=== PATIENT | male | born 1950 | race Caucasian/White ===

== ENCOUNTER 2022-08-18 08:20 | Day surgery (SDC) | payer OTHER ==
[~2022-08-18] VITALS: Ht 180.3 cm; Wt 101.2 kg
[2022-08-18 08:50] VITALS: BP 148/73
[2022-08-18] MEDS ORDERED: normal saline 1000ml 1,000 ML IV PRN (08:55)
[2022-08-18] MEDS ORDERED: MULT-1249 PO (09:13)
[2022-08-18] MEDS ORDERED: ACET-1025 PO (09:13)
[2022-08-18] MEDS ORDERED: ALLO100T PO (09:13)
[2022-08-18] MEDS ORDERED: FLO0.4C PO (09:13)
[2022-08-18] MEDS ORDERED: DOCU100C40 PO (09:13)
[2022-08-18] MEDS ORDERED: CARV-50 PO (09:13)
[2022-08-18] MEDS ORDERED: CARB1DRO42 EACHEYE (09:13)
[2022-08-18] MEDS ORDERED: CLON0.1T PO (09:13)
[2022-08-18] MEDS ORDERED: DOXY25TA58 PO (09:13)
[2022-08-18] MEDS ORDERED: CALC668T PO (09:13)
[2022-08-18] MEDS ORDERED: ATOR80TA PO (09:13)
[2022-08-18] MEDS ORDERED: ASPI81TA52 PO (09:13)
[2022-08-18] MEDS ORDERED: CINN500C15 PO (09:13)
[2022-08-18] MEDS ORDERED: FIBER PO (09:13)
[2022-08-18] MEDS ORDERED: CHOL100046 PO (09:13)
[2022-08-18] MEDS ORDERED: ATRNS (09:13)
[2022-08-18] MEDS ORDERED: iohexol 300mg/ml 100ml inj. ONE (09:20)
[2022-08-18] MEDS ORDERED: fentaNYL/PF 50MCG/1 ML 2ML syringe ONE ×2 (09:20→10:53)
[2022-08-18] MEDS ORDERED: midazolam 1 mg/ML 2ml injection ONE ×2 (09:20→10:58)
[2022-08-18] MEDS ORDERED: heparin 1,000 UNITS/NS 500ml 500 ML ONE (09:20)
[2022-08-18 10:00] LABS: BASOPHILS # (AUTO) 0.1 X10'3 (0-0.2); BASOPHILS % (AUTO) 0.8 % (0-1); EOSINOPHILS # (AUTO) 0.1 X10'3 (0-0.9); EOSINOPHILS % (AUTO) 1.7 % (0-6); HEMATOCRIT 35.8 % (42.0-52.0); HEMOGLOBIN 12.2 g/dl (14.0-17.9); LYMPHOCYTES # (AUTO) 2.3 X10'3 (1.1-4.8); LYMPHOCYTES % (AUTO) 25.9 % (21-51); MEAN CORPUSCULAR HEMOGLOBIN 31.2 PG (27.0-31.0); MEAN CORPUSCULAR HGB CONC 34.1 g/dL (33.0-36.5); MEAN CORPUSCULAR VOLUME 91.5 FL (78-98); MEAN PLATELET VOLUME 8.7 FL (7.4-10.4); MONOCYTES # (AUTO) 0.7 X10'3 (0-0.9); NEUTROPHILS # (AUTO) 5.6 X10'3 (1.8-7.7); NEUTROPHILS % (AUTO) 63.6 % (42-75); PLATELET COUNT 264 X10'3 (140-440); RED BLOOD COUNT 3.91 X10'6 (4.70-6.10); RED CELL DISTRIBUTION WIDTH 15.8 % (11.5-14.5); WHITE BLOOD COUNT 8.7 X10'3 (4.5-11.0)
[2022-08-18 10:03] LABS: ALBUMIN 4.3 G/DL (3.4-5.0); ANION GAP 9 (8-16); BLOOD UREA NITROGEN 36 MG/DL (7-18); BUN/CREATININE RATIO 10.3 (5.4-32.0); CALCIUM 10.1 MG/DL (8.5-10.1); CHLORIDE 98 MMOL/L (99-107); GLUCOSE 251 MG/DL (70-104); POTASSIUM 3.3 MMOL/L (3.5-5.1); SODIUM 138 MMOL/L (135-145); TOTAL CARBON DIOXIDE 31.4 MMOL/L (24-32); eGFR 17 ML/MIN
[2022-08-18 11:30] VITALS: BP 170/79
[2022-08-18 11:45] VITALS: BP 162/76
[2022-08-18 12:00] VITALS: BP 151/70
[2022-08-18 12:15] VITALS: BP 146/76
[2022-08-18 12:45] VITALS: BP 136/54
== END 2022-08-18 12:45 | disposition home or self-care (01) ==
LOC: SSTAY O 08:20
PROVIDERS: ATTEND Radiology Vascular & Interventional Radiology
DX: T82.858A Stenosis of other vascular prosthetic devices, implants and grafts, initial encounter (principal); E11.22 Type 2 diabetes mellitus with diabetic chronic kidney disease; N18.6 End stage renal disease; F32.A Depression, unspecified; N40.0 Benign prostatic hyperplasia without lower urinary tract symptoms; M10.9 Gout, unspecified; I50.9 Heart failure, unspecified; G47.33 Obstructive sleep apnea (adult) (pediatric); Z95.0 Presence of cardiac pacemaker; Z88.5 Allergy status to narcotic agent; Z79.899 Other long term (current) drug therapy; Y83.2 Surgical operation with anastomosis, bypass or graft as the cause of abnormal reaction of the patient, or of later complication, without mention of misadventure at the time of the procedure; Y92.89 Other specified places as the place of occurrence of the external cause
CPT/HCPCS: 36415; 36902; 80048; 82948; 85025; 85610; 99152; 99153; C1769; C1894; J1644; J2250; J3010; J7030; Q9967; C2623

== ENCOUNTER 2023-04-16 06:25 | Day surgery (SDC) | payer OTHER ==
[~2023-04-16] VITALS: Ht 180.3 cm; Wt 103.6 kg
[~2023-04-16 06:25] MED LIST: ACET-1025 PO; ALLO100T PO; ASPI81TA52 PO; ATOR80TA PO; ATRNS; CALC668T PO; CARB1DRO42 EACHEYE; CARV-50 PO; CHOL100046 PO; CINN500C15 PO; CLON0.1T PO; DOCU100C40 PO; DOXY25TA58 PO; FIBER PO; FLO0.4C PO; MULT-1249 PO
[2023-04-16 06:56] VITALS: BP 142/64; PULSE 60; RESP 16; TEMP 97.9; O2SAT 95
[2023-04-16] MEDS ORDERED: normal saline 1000ml 1,000 ML IV PRN (07:05)
[2023-04-16 07:15] LABS: BASOPHILS # (AUTO) 0.1 X10'3 (0-0.2); BASOPHILS % (AUTO) 0.8 % (0-1); EOSINOPHILS # (AUTO) 0.2 X10'3 (0-0.9); EOSINOPHILS % (AUTO) 2.3 % (0-6); HEMOGLOBIN 11.5 g/dl (14.0-17.9); LYMPHOCYTES # (AUTO) 1.8 X10'3 (1.1-4.8); LYMPHOCYTES % (AUTO) 20.4 % (21-51); MEAN CORPUSCULAR HEMOGLOBIN 29.5 PG (27.0-31.0); MEAN CORPUSCULAR HGB CONC 32.8 g/dL (33.0-36.5); MEAN CORPUSCULAR VOLUME 90.1 FL (78-98); MEAN PLATELET VOLUME 8.1 FL (7.4-10.4); MONOCYTES # (AUTO) 0.8 X10'3 (0-0.9); MONOCYTES % (AUTO) 8.8 % (2-12); NEUTROPHILS % (AUTO) 67.7 % (42-75); PLATELET COUNT 224 X10'3 (140-440); RED BLOOD COUNT 3.89 X10'6 (4.70-6.10); WHITE BLOOD COUNT 8.9 X10'3 (4.5-11.0)
[2023-04-16 07:24] LABS: ALBUMIN 4.1 G/DL (3.4-5.0); ANION GAP 11 (8-16); BLOOD UREA NITROGEN 57 MG/DL (7-18); BUN/CREATININE RATIO 13.5 (10.0-20.0); CALCIUM 9.5 MG/DL (8.5-10.1); CHLORIDE 102 MMOL/L (99-107); CREATININE 4.23 MG/DL (0.60-1.10); GLUCOSE 227 MG/DL (70-104); POTASSIUM 4.4 MMOL/L (3.5-5.1); SODIUM 138 MMOL/L (135-145); TOTAL CARBON DIOXIDE 25.3 MMOL/L (24-32); eCRCL 17 ML/MIN; eGFR 14 ML/MIN
[2023-04-16 07:27] LABS: PROTHROMBIN TIME 10.3 SECONDS (9.0-12.0)
[2023-04-16] MEDS ORDERED: POTA20PA40 PO (07:47)
[2023-04-16] MEDS ORDERED: FOLI0.8T41 PO (07:47)
[2023-04-16] MEDS ORDERED: HYDR-4069 PO (07:47)
[2023-04-16] MEDS ORDERED: FLO0.4C PO (07:47)
[2023-04-16] MEDS ORDERED: GABA-530 PO (07:47)
[2023-04-16] MEDS ORDERED: METH-798 PO (07:47)
[2023-04-16] MEDS ORDERED: ALOG12.5 PO (07:47)
[2023-04-16] MEDS ORDERED: fentaNYL/PF 50MCG/1 ML 2ML syringe ONE ×2 (07:55→08:47)
[2023-04-16] MEDS ORDERED: midazolam 1 mg/ML 2ml injection ONE ×2 (07:55→08:47)
[2023-04-16] MEDS ORDERED: heparin 1,000 UNITS/NS 500ml 500 ML ONE (07:55)
[2023-04-16] MEDS ORDERED: iohexol 300mg/ml 100ml inj. ONE (07:55)
[2023-04-16 08:00] VITALS: RESP 16; O2SAT 95
[2023-04-16] MEDS ORDERED: LIDOcaine 1% 30ml preserv. free vial ONE (08:20)
[2023-04-16] MEDS ORDERED: tPA-cathflo 2 MG/2 ml IV flush ONE (09:29)
[2023-04-16] MEDS ORDERED: heparin 1,000unit/ml 10ml vial 10 ML ONE (09:31)
[2023-04-16 10:02] VITALS: BP 173/84; PULSE 61; RESP 16; O2SAT 99
[2023-04-16 10:15] VITALS: BP 158/67; PULSE 61; RESP 16; O2SAT 97
[2023-04-16 10:30] VITALS: BP 138/76; PULSE 60; RESP 16; O2SAT 92
== END 2023-04-16 11:06 | disposition home or self-care (01) ==
LOC: SSTAY O 06:25
PROVIDERS: ATTEND Radiology Vascular & Interventional Radiology
DX: T82.858A Stenosis of other vascular prosthetic devices, implants and grafts, initial encounter (principal); E11.22 Type 2 diabetes mellitus with diabetic chronic kidney disease; N18.6 End stage renal disease; N40.0 Benign prostatic hyperplasia without lower urinary tract symptoms; F32.A Depression, unspecified; M10.9 Gout, unspecified; I50.9 Heart failure, unspecified; G47.33 Obstructive sleep apnea (adult) (pediatric); Z99.2 Dependence on renal dialysis; Z95.0 Presence of cardiac pacemaker; Z98.890 Other specified postprocedural states; Z88.5 Allergy status to narcotic agent; Z79.899 Other long term (current) drug therapy; Z79.82 Long term (current) use of aspirin
CPT/HCPCS: 36415; 36904; 36907; 80048; 82948; 85025; 85610; 99152; 99153; C1725; C1887; J1644; J2250; J2997; J3010; J3490; J7030; Q9967; 36901; 36905; C1769; C1894; C2623

== ENCOUNTER 2024-11-07 11:53 | Outpatient (CLI) | payer MEDICARE, OTHER ==
[~2024-11-07 11:53] MED LIST changes: -ACET-1025 PO; +ALOG12.5 PO; +ATOR-429 PO; -ATOR80TA PO; -ATRNS; -CARB1DRO42 EACHEYE; -CHOL100046 PO; +CHOL400T8 PO; +FURO-150 PO; +HYDR25TA90 PO; +METH-798 PO; +NIFE10CA57 PO; +PREG150C47 PO; +SENN-25 PO
--- NOTE | 2024-11-07 15:20 | RADIOLOGY REPORT ---
[facility] EXAMINATION: MR MRI HEAD INDICATION: LUNG CA, R/O METS, ABBOT [id number]. COMPARISON: None TECHNIQUE: Multiplanar, multisequence magnetic resonance imaging of the brain was performed without the use of i ntravenous contrast. FINDINGS: No evidence of acute or remote infarct. No intracranial hemorrhage. No mass effect. There is periventricular/deep white matter T2/FLAIR hyperintensity is nonspecific, but most commonly associated with chronic microvascular disease. The ventricles and sulci are normal in size for age. Clear basal cisterns. Flow voids in the major intracranial vessels are maintained. No abnormality of the orbits. Paranasal sinuses and mastoid air cells are clear. No abnormality of the visualized osseous structures and extracranial soft tissues. IMPRESSION: No acute infarct, intracranial hemorrhage, mass effect, or hydrocephalus.
== END 2024-11-07 23:59 | disposition home or self-care (01) ==
LOC: MRI 11:53
PROVIDERS: ATTEND Surgery
DX: C34.11 Malignant neoplasm of upper lobe, right bronchus or lung (principal); I67.89 Other cerebrovascular disease
CPT/HCPCS: 70551

== ENCOUNTER 2024-11-13 08:00 | Inpatient (IN) | payer MEDICARE, OTHER ==
[2024-11-02 16:15] LABS: BASOPHILS # (AUTO) 0.1 X10'3 (0-0.2); BASOPHILS % (AUTO) 0.6 % (0-1); EOSINOPHILS # (AUTO) 0.2 X10'3 (0-0.9); EOSINOPHILS % (AUTO) 1.7 % (0-6); LYMPHOCYTES # (AUTO) 2.2 X10'3 (1.1-4.8); LYMPHOCYTES % (AUTO) 22.8 % (21-51); MEAN CORPUSCULAR HEMOGLOBIN 30.4 PG (27.0-31.0); MEAN CORPUSCULAR HGB CONC 34.7 g/dL (33.0-36.5); MEAN CORPUSCULAR VOLUME 87.8 FL (78-98); MONOCYTES # (AUTO) 0.9 X10'3 (0-0.9); MONOCYTES % (AUTO) 8.8 % (2-12); NEUTROPHILS # (AUTO) 6.5 X10'3 (1.8-7.7); NEUTROPHILS % (AUTO) 66.1 % (42-75); PRE OP HEMATOCRIT 33.3 % (42.0-52.0); PRE OP HEMOGLOBIN 11.6 g/dL (14.0-17.9); PRE OP PLATELET COUNT 266 X10'3 (140-440); PRE OP WHITE BLOOD COUNT 9.8 10'3 (4.8-10.8); RED CELL DISTRIBUTION WIDTH 16.5 % (11.5-14.5)
[2024-11-02 16:17] LABS: BILIRUBIN,URINE NEGATIVE (Neg); CLARITY,URINE CLEAR (Clear); COLOR,URINE YELLOW (Yellow); GLUCOSE, URINE 250 mg/dl (Neg); KETONES,URINE NEGATIVE (Neg); LEUKOCYTE ESTERASE ,URINE NEGATIVE (Neg); NITRITES, URINE NEGATIVE (Neg); OCCULT BLOOD,URINE TRACE-INTACT (Neg); PROTEIN,URINE >=300 mg/dl (Neg); UROBILINOGEN,URINE 0.2 E.U/dL (0.2-1.0)
[2024-11-02 16:28] LABS: PRE OP PROTIME 10.7 SECONDS (9.0-12.0)
[2024-11-02 16:29] LABS: ALBUMIN 3.9 G/DL (3.4-5.0); ALBUMIN/GLOBULIN RATIO 1.2 (1.1-1.5); ALKALINE PHOSPHATASE 72 IU/L (46-116); BLOOD UREA NITROGEN 30 MG/DL (7-18); BUN/CREATININE RATIO 7.3 (10.0-20.0); CHLORIDE 105 MMOL/L (99-107); CREATININE 4.13 MG/DL (0.60-1.10); PRE OP ALT 55 U/L (30-65); PRE OP ANION GAP 7 (8-16); PRE OP AST 33 U/L (10-37); PRE OP BILIRUB, TOTAL 0.5 MG/DL (0.0-1.0); PRE OP GLUCOSE 178 MG/DL (70-104); PRE OP POTASSIUM 3.8 MMOL/L (3.4-5.1); PRE OP SODIUM 140 MMOL/L (135-145); TOTAL CARBON DIOXIDE 28.4 MMOL/L (24-32); TOTAL PROTEIN 7.2 G/DL (6.4-8.2); eGFR 14 ML/MIN
[2024-11-02 16:30] LABS: UA COLLECTION TYPE NON-SPECIFIED
[2024-11-02 16:32] LABS: BACTERIA,URINE FEW /HPF (Neg); SQUAMOUS EPITHELIAL CELL,UR FEW /LPF (FEW); WBC,URINE 0-4 /HPF (0-4)
--- NOTE | 2024-11-02 19:21 | RADIOLOGY REPORT ---
EXAM: DI CHEST,TWO VIEWS CLINICAL HISTORY: Pain COMPARISON: None TECHNIQUE: Frontal and lateral view of the chest was obtained FINDINGS: Lines and Tubes: Cardiac pacemaker projects over left chest wall. Lungs: No focal consolidation. Pleura: No effusion. No pneumothorax. Cardiomediastinal contours:Cardiomegaly. Possible small hiatal hernia. Bones: No acute osseous abnormality. IMPRESSION: No acute cardiopulmonary disease. Cardiomegaly.
[2024-11-03 14:03] LABS: ABG BASE EXCESS 0.8 mmol/L (-2.0-3.0); ABG HCO3 24.9 mmol/L (21.0-28.0); ABG OXYGEN SATURATION 95.5 % (94.0-98.0); ABG PCO2 (T) 38.1 mmHg (35.0-48.0); ABG PH (T) 7.433 (7.350-7.450); ABG PO2 (T) 79.5 mmHg (83.0-108.0); ALLEN'S TEST POSITIVE; FHHb 4.5 % (0.0-5.0); FMetHb 0.3 % (0.0-1.5); FO2Hb 95.2 % (94.0-98.0); TOTAL HEMOGLOBIN 11.8 G/dl (13.5-17.5)
[~2024-11-13] VITALS: Ht 177.8 cm; Wt 92.8 kg
[2024-11-16] VITALS (46 sets, daily range): BP systolic 91–157; BP diastolic 2–70; PULSE 60–80; RESP 8–21; TEMP 97.9–98.9; O2SAT 93–100
[2024-11-16] MEDS: DOCUMENT DATE & TIME OF BETA-BLOCKER PO ONE (05:30)
[2024-11-16] MEDS: ceFAZolin 2gm/dext,iso 50mL 50 ML IV ONE (05:30)
[2024-11-16] MEDS ORDERED: INDOCYANINE GREEN 25 MG/10 ML VIAL IV ONE (07:04)
[2024-11-16] MEDS ORDERED: BUPIVAcaine/PF 2.5mg/ml (0.25%) 10ml vial ONE (07:05)
[2024-11-16] MEDS ORDERED: BUPIVAcaine 2.5mg/ml inj 50ml vial (contains preservative) ONE (07:05)
[2024-11-16] MEDS ORDERED: BUPIVACAINE liposomal/PF 13.3 MG/ML 10mL vial IM ONE ×2 (07:06→07:44)
--- NOTE | 2024-11-16 08:28 | RADIOLOGY REPORT ---
Procedure: CT CT CHEST Reason for study/Clinical History: PRE-OP RIGHT UPPER LOBECTOMY Comparison Study: None Exam Date: 11/16/2024 07:53 AM TECHNIQUE: Multidetector CT of the chest was performed from the lung apices to the upper abdomen with out the use of intravenous contract. Coronal and sagittal multiplanar reformats were performed. Radiation Dose Information: CT Dose: CTDI volume is 18.7 mGy. Dose-length product is 746.5 mGy*cm The dose indicators for CT are the volume Computed Tomography (CT) Dose Index (CTDIvol) and the Dose Length Product (DLP), and are measured in units of mGy and mGy-cm, respectively. These indicators are not patient dose, but values generated from the CT scanner acquisition factors. The report includes radiation exposure data for exposures received during this examination. FINDINGS: Lower neck: Normal thyroid. Lungs: There is a spiculated right upper lobe pulmonary nodule laterally which measures 1.8 by 1.7 cm . There is a right apical bulla measuring 3.1 cm. Bilateral lower lobe atelectasis. Central airways: Patent. Heart/Vascular Structures: Dual-chamber pacemaker with right atrial and ventricular leads. Normal hea rt size. Coronary artery calcifications. No pericardial effusion. Lymph Nodes: Increased number of right axillary lymph nodes which are subcentimeter in size. Pleura: No pleural effusion or significant pneumothorax. Musculoskeletal: No acute osseous abnormality. Soft tissues: Normal. Upper abdomen: Limited portions of the upper abdomen are unremarkable. IMPRESSION: 1. 1.8 cm spiculated nodule in the right upper lobe. 2. Increased number of right axillary lymph nodes. Although they are not pathologically enlarged, me tastatic adenopathy is not entirely excluded. Correlation with any prior CT or PET imaging recommende d. Radiation optimization: All CT scans at this facility use at least one of these dose optimization sami hniques: automated exposure control mA and/or kV adjustment per patient size (includes targeted exam s where dose is matched to clinical indication) or iterative reconstruction.
[2024-11-16] MEDS: famotidine 20mg tablet PO ONE (08:57)
[2024-11-16 09:23] LABS: ALANINE AMINOTRANSFERASE 44 U/L (12-78); ALBUMIN 3.5 G/DL (3.4-5.0); ALBUMIN/GLOBULIN RATIO 1.1 (1.1-1.5); ALKALINE PHOSPHATASE 61 IU/L (46-116); ANION GAP 11 (8-16); ASPARTATE AMINO TRANSFERASE 24 U/L (10-37); BILIRUBIN,TOTAL 0.4 MG/DL (0.1-1.0); BLOOD UREA NITROGEN 20 MG/DL (7-18); BUN/CREATININE RATIO 5.6 (10.0-20.0); CALCIUM 8.8 MG/DL (8.5-10.1); CHLORIDE 105 MMOL/L (99-107); GLUCOSE 171 MG/DL (70-104); SODIUM 143 MMOL/L (135-145); TOTAL CARBON DIOXIDE 27.5 MMOL/L (24-32); TOTAL PROTEIN 6.6 G/DL (6.4-8.2); eCRCL 19 ML/MIN; eGFR 17 ML/MIN
[2024-11-16 09:24] LABS: HEMOGLOBIN A1C 6.3 % (4.5-6.2)
[2024-11-16] MEDS ORDERED: sevoflurane 250ml liquid IH ONE (09:30)
[2024-11-16] MEDS ORDERED: NORepinephrine 8mg/ 250ml NS 250 ML IV ONE (09:31)
[2024-11-16] MEDS ORDERED: midazolam 1 mg/ML 2ml injection ONE (09:35)
[2024-11-16] MEDS ORDERED: fentaNYL /PF 50mcg/ml 5ml ampule ONE (09:35)
[2024-11-16] MEDS: BUPIVAcaine/PF 2.5mg/ml (0.25%) 10ml vial IJ ONE (10:39)
[2024-11-16] MEDS ORDERED: HYDROmorphone/PF 0.2 MG/ML SYRINGE IV PRN (12:05)
[2024-11-16] MEDS ORDERED: morphine 4 MG/ML inj SYRINge IV PRN ×2 (12:05→13:25)
[2024-11-16] MEDS ORDERED: morphine 2 MG/ML inj. syringe IV PRN ×2 (12:05→13:25)
[2024-11-16] MEDS ORDERED: labetalol 20mg/4ml (5mg/ml) syringe IV PRN (12:05)
[2024-11-16] MEDS ORDERED: hydrALAZINE 20mg/ml inj. IV PRN (12:05)
[2024-11-16] MEDS: ringers solution, lacted 1,000 ML IV SCH ×2 (12:05→19:39)
[2024-11-16] MEDS ORDERED: acetaminophen 1,000mg/100ml IV 100 ML IV PRN (12:05)
[2024-11-16] MEDS ORDERED: ondansetron/PF 4mg/2ml inj IV PRN ×2 (12:05→13:25)
[2024-11-16] MEDS ORDERED: rocuronium 10mg/ml inj IV ONE ×2 (12:56)
[2024-11-16] MEDS ORDERED: acetaminophen 1,000mg/100ml IV 100 ML IV ONE (12:56)
[2024-11-16] MEDS ORDERED: propofol inj 20 ML IV ONE (12:57)
[2024-11-16] MEDS ORDERED: sugammadex 200mg/2ml injection IV ONE (13:04)
--- NOTE | 2024-11-16 13:23 | OPERATIVE REPORT ---
Operative Report Providers to CC ~ Date of Procedure: Nov 16, 2024 Pre-Operative Diagnosis: rul nsclc Post-Operative Diagnosis SAME as PRE-Op Procedure Performed robo rul/robo node dissection/chest tube placement Surgeon: prieto nance Anesthesiologist: Dariel Vera Type of Anesthesia: General Findings: rul mass Estimated Blood Loss: 200 ml Specimen Removed: rul/multiple nodes MERLIN WEAVER MD Nov 16, 2024 13:23
[2024-11-16] MEDS: potassium cl 20mEq in 1/2 NS 1,000 ML IV SCH (13:25)
[2024-11-16] MEDS ORDERED: metoclopramide 5 mg/ml inj IV PRN (13:25)
[2024-11-16] MEDS ORDERED: albuterol 2.5 MG/3 ML nebule NEB PRN (13:25)
--- NOTE | 2024-11-16 13:57 | RADIOLOGY REPORT ---
EXAM: DI CHEST,SINGLE VIEW Indication: POST OP Technique: Single frontal view of the chest was obtained Comparison: None FINDINGS: Lines and Tubes: Cardiac pacemaker projects over left chest wall. Lungs: Pulmonary vascular congestion. Pleura: Trace left pleural effusion. No pneumothorax. Cardiomediastinal contours: Cardiomegaly. Bones: No acute osseous abnormality. IMPRESSION: Cardiomegaly with pulmonary vascular congestion.
[2024-11-16] MEDS: HYDROmorphone/PF 0.2 MG/ML SYRINGE IV PRN (14:20)
[2024-11-16] MEDS ORDERED: insulin regular, human 10 units/0.1 ml syringe SQ ONE ×2 (14:40→14:45)
[2024-11-16] MEDS: insulin regular, human 10 units/0.1 ml syringe IV ONE ×2 (14:55→14:56)
[2024-11-16 15:22] LABS: ABG BASE EXCESS -4.8 mmol/L (-2.0-3.0); ABG HCO3 20.4 mmol/L (21.0-28.0); ABG OXYGEN SATURATION 98.8 % (94.0-98.0); ABG PCO2 (T) 38.1 mmHg (35.0-48.0); ABG PH (T) 7.347 (7.350-7.450); ABG PO2 (T) 152.9 mmHg (83.0-108.0); ALLEN'S TEST POSITIVE; FCOHb 0.4 % (0.5-1.5); FHHb 1.2 % (0.0-5.0); FLOW 6 L/min; FMetHb 0.3 % (0.0-1.5); FO2Hb 98.1 % (94.0-98.0); MODE NASAL CANNULA; TOTAL HEMOGLOBIN 9.2 G/dl (13.5-17.5)
--- NOTE | 2024-11-16 17:21 | RADIOLOGY REPORT ---
EXAM: DI CHEST,SINGLE VIEW TECHNIQUE: Single frontal chest radiograph CLINICAL HISTORY: POST OP - INCREASE CHEST TUBE DISCHARGE COMPARISON: DI CHEST,SINGLE VIEW on DOS: 11/16/24 Findings/Impression: Frontal chest radiograph demonstrates no acute osseous abnormalities. Mild right lateral chest wall and supraclavicular subcutaneous emphysema. Left chest wall dual-chamber pacemaker. Left IJ catheter terminates near the proximal brachiocephalic vein. The trachea is midline. The cardiac silhouette and mediastinum are within normal limits. Interval increase in size of the right pneumothorax, now measuring approximately 35%. The right large bore chest tube terminates near the upper mediastinum. Right mid to lower lung field atelectasis and/or developing infection.
[2024-11-16] MEDS: gabapentin 300mg capsule PO SCH (19:00)
[2024-11-16] MEDS: HYDROmorphone inj. 0.5 MG/0.5 ML DISP.SYRIN IV PRN (19:03)
[2024-11-16] MEDS: ceFAZolin 1GM/D5W- ADD-VANTAGE 50 ML IV SCH (19:51)
[2024-11-16] MEDS: HYDROcodone/acetaminophen 10/325mg tab PO PRN (20:48)
[2024-11-17] VITALS (42 sets, daily range): BP systolic 100–212; BP diastolic 32–85; PULSE 60–94; RESP 10–24; TEMP 98–99.4; O2SAT 90–97
[2024-11-17 05:03] LABS: BASOPHILS % (AUTO) 0.2 % (0-1); EOSINOPHILS % (AUTO) 0 % (0-6); HEMOGLOBIN 7.3 g/dl (14.0-17.9); LYMPHOCYTES # (AUTO) 1.5 X10'3 (1.1-4.8); LYMPHOCYTES % (AUTO) 11.1 % (21-51); MEAN CORPUSCULAR HEMOGLOBIN 29.8 PG (27.0-31.0); MEAN CORPUSCULAR HGB CONC 33.6 g/dL (33.0-36.5); MEAN CORPUSCULAR VOLUME 88.6 FL (78-98); MEAN PLATELET VOLUME 8.3 FL (7.4-10.4); MONOCYTES # (AUTO) 1.2 X10'3 (0-0.9); MONOCYTES % (AUTO) 8.7 % (2-12); PLATELET COUNT 237 X10'3 (140-440); RED BLOOD COUNT 2.46 X10'6 (4.70-6.10); WHITE BLOOD COUNT 13.7 X10'3 (4.5-11.0)
[2024-11-17 05:05] LABS: HEMATOCRIT 21.8 % (42.0-52.0)
[2024-11-17 05:39] LABS: ALANINE AMINOTRANSFERASE 34 U/L (12-78); ALBUMIN/GLOBULIN RATIO 1.3 (1.1-1.5); ALKALINE PHOSPHATASE 53 IU/L (46-116); ANION GAP 11 (8-16); ASPARTATE AMINO TRANSFERASE 29 U/L (10-37); BILIRUBIN,TOTAL 0.3 MG/DL (0.1-1.0); BLOOD UREA NITROGEN 38 MG/DL (7-18); BUN/CREATININE RATIO 6.6 (10.0-20.0); CALCIUM 7.8 MG/DL (8.5-10.1); CHLORIDE 104 MMOL/L (99-107); CREATININE 5.77 MG/DL (0.60-1.10); GLUCOSE 256 MG/DL (70-104); MAGNESIUM 1.8 MG/DL (1.5-2.4); PHOSPHORUS 3.8 MG/DL (2.3-4.5); POTASSIUM 5.5 MMOL/L (3.5-5.1); SODIUM 139 MMOL/L (135-145); TOTAL CARBON DIOXIDE 24.4 MMOL/L (24-32); TOTAL PROTEIN 5.3 G/DL (6.4-8.2); eCRCL 12 ML/MIN; eGFR 10 ML/MIN
--- NOTE | 2024-11-17 06:20 | OPERATIVE REPORT ---
DATE OF SURGERY: 11/16/2024 DICTATING PHYSICIAN: Justin Cruz MD PREOPERATIVE DIAGNOSIS: History of non-small cell lung cancer. POSTOPERATIVE DIAGNOSIS: History of non-small cell lung cancer. PROCEDURES PERFORMED: * Robotic thoracoscopic-assisted right upper lobectomy. * Robotic-assisted thoracoscopic node dissection. * Chest tube placement. SURGEON: Justin Cruz MD POLY PACKER AND HEAT SEALER: Wes. ANESTHESIA: General/Dr. Vera. DRAINS: Chest tube x 1. INDICATIONS FOR OPERATION: A 73-year-old male with right upper lobe mass and biopsy revealed non-small cell lung cancer. The patient was taken to Surgery for right upper lobectomy. INTRAOPERATIVE FINDINGS: Right upper lobe mass. DESCRIPTION OF PROCEDURE: The patient was placed supine on the operating room table. After induction of general anesthesia and placement of endotracheal tube, the patient was placed in the left lateral decubitus position, right side up and prepped and draped. Incision was made at the level of the sixth intercostal space and posterior axillary line. A port was placed in the left chest cavity after lung was deflated. One port was placed anterior placed anterior-inferior, 2 ports were placed posteriorly under fluoroscopic vision. Robot was then brought to the field. Camera port docked, camera placed, camera targeted. Additional ports were then docked and instruments placed. Chest was then explored. Right lobe was retracted cephalad. Inferior pulmonary ligament was taken down. Lungs were retracted anteriorly. Station 7 nodes identified. The patient had a complete fissure. The was sent to pathology for evaluation. Mediastinum was then incised. Station 2 and 4 nodes were identified and sent to pathology for evaluation. The lung was then retracted posteriorly dissection performed and right isolated. Attention was then turned to the fissure, where nodes were sampled and the fissure was essentially complete. Posterior identified and isolated. and divided. Right upper lobe bronchus was then isolated and divided using a green load. Anterior apical trunk was then isolated and divided using a vascular load. The vein was then isolated and divided using a vascular load. The remainder of the blue loads. Specimen was then freed from surrounding lung tissue. All foreign bodies were then removed. Upper lobe placed in an Endobag. Chest was then irrigated with a large amount of antibiotic-containing solution. There was some bleeding noted in the bronchial stump, which was subsequently controlled with Tisseel and fibrillar. The upper lobe was then removed using an Endobag after robot was removed from the field and ports removed. Because ongoing bleeding, ports were replaced in the chest. After removal of the specimen, robot was brought back to the field, no significant bleeding noted. Robotic instruments were removed. Robot was then docked. Tisseel was then used to secure the hilum. A #28 chest tube was placed directed apically and superiorly. The lung was then re-expanded. All ports were removed. Chest wall incisions were clipped and closed in layers. Skin was closed with subcuticular stitches. Dressings applied. Chest was attached to Pleur-evac and the patient was transferred to recovery in stable condition after reversing from general anesthesia. Justin Cruz MD TID: [id number] RECEIPT: [id number] ANNABELLE/JUAN R/ALESSANDRA cc: Dariel Terry MD
--- NOTE | 2024-11-17 06:29 | RADIOLOGY REPORT ---
CHEST RADIOGRAPH Indication: POST OP Technique: Single frontal view of the chest was obtained Comparison: DI CHEST,SINGLE VIEW on DOS: 11/16/24 FINDINGS: Lines and Tubes: There is a right apically oriented chest tube. Dual-chamber pacemaker with right at rial and ventricular leads. Left central venous catheter with tip terminating in the superior vena c patricia. Lungs: Patchy bilateral opacities are decreased. Pleura: No effusion. Decreased right apical pneumothorax, now small. Cardiomediastinal contours: Stable Cardiovascular silhouette. Bones: No acute osseous abnormality. IMPRESSION: 1. Decreased right apical pneumothorax. Right chest tube has been repositioned with tip projecting o todd the right lung apex. 2. Patchy bilateral opacities which may reflect edema or pneumonia, overall decreased.
[2024-11-17] MEDS ORDERED: normal saline 1000ml 100 ML IV PRN (08:25)
[2024-11-17] MEDS ORDERED: dextrose 50%-water 50ml dispensing syringe IV PRN ×2 (08:45)
[2024-11-17] MEDS ORDERED: DEXTROSE 15 GM of carb/4 tabs (each vial/BOTTLE has 4 tablets) PO PRN ×2 (08:45)
[2024-11-17] MEDS: HYDROcodone/acetaminophen 10/325mg tab PO PRN (08:55)
[2024-11-17] MEDS: heparin 1,000 units/ml 10ml inj HE ONE ×2 (09:17)
[2024-11-17] MEDS: EPOETIN ALFA-EPBX 20,000 UNIT/ML 1 ML MDV IV ONE (09:18)
[2024-11-17] MEDS: INSULIN LISPRO 100 UNIT/ML INSULN.PEN MULTI-DOSE SQ SCH ×2 (10:06→22:02)
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
--- NOTE | 2024-11-17 15:38 | PROGRESS NOTE ---
Progress Note ID Providers to CC ~ Progress Note Progress Note: doing well/transfer to tele MERLIN WEAVER MD Nov 17, 2024 15:38
[2024-11-17] MEDS: hydrALAZINE 20mg/ml inj. IV PRN (19:21)
[2024-11-17] MEDS: carVEDilol 12.5mg tablet PO SCH (22:17)
[2024-11-17] MEDS: cloNIDine 0.1 mg tablet PO SCH (22:17)
[2024-11-17] MEDS: sennosides 8.6mg tablet PO SCH (22:17)
[2024-11-17] MEDS: calcium polycarbophil 625mg tablet PO SCH (22:17)
[2024-11-17] MEDS: atorvastatin 20mg tablet PO SCH (22:17)
[2024-11-17] MEDS: hydrALAZINE 25 MG tablet PO SCH (22:18)
[2024-11-17] MEDS: pregabalin 75mg capsule PO SCH (22:18)
[2024-11-17] MEDS: aspirin 81mg, enteric-coated 1 TAB TABLET.DR PO SCH (22:18)
[2024-11-17] MEDS: furosemide 20MG tablet PO SCH (22:18)
[2024-11-18] VITALS (13 sets, daily range): BP systolic 124–167; BP diastolic 40–78; PULSE 63–75; RESP 16–71; TEMP 97.9–101; O2SAT 88–97
[2024-11-18 06:46] LABS: ALANINE AMINOTRANSFERASE 17 U/L (12-78); ALBUMIN 2.9 G/DL (3.4-5.0); ALBUMIN/GLOBULIN RATIO 0.9 (1.1-1.5); ALKALINE PHOSPHATASE 50 IU/L (46-116); ANION GAP 15 (8-16); ASPARTATE AMINO TRANSFERASE 31 U/L (10-37); BILIRUBIN,TOTAL 0.4 MG/DL (0.1-1.0); BLOOD UREA NITROGEN 44 MG/DL (7-18); BUN/CREATININE RATIO 7.5 (10.0-20.0); CALCIUM 8.6 MG/DL (8.5-10.1); CHLORIDE 103 MMOL/L (99-107); GLUCOSE 258 MG/DL (70-104); PHOSPHORUS 3.1 MG/DL (2.3-4.5); POTASSIUM 3.8 MMOL/L (3.5-5.1); SODIUM 143 MMOL/L (135-145); TOTAL CARBON DIOXIDE 25.5 MMOL/L (24-32); eCRCL 11 ML/MIN; eGFR 9 ML/MIN
--- NOTE | 2024-11-18 06:50 | RADIOLOGY REPORT ---
EXAM: DI CHEST,SINGLE VIEW HISTORY: POST OP COMPARISON: DI CHEST,SINGLE VIEW on DOS: 11/17/24, DI CHEST,SINGLE VIEW on DOS: 11/16/24, DI CHEST,SING LE VIEW on DOS: 11/16/24, chest CT dated 11/16/2024 TECHNIQUE: Portable upright AP view of the chest was performed. FINDINGS: Right thoracostomy tube is re-identified with small residual right apical pneumothorax persisting, si milar to that seen on the previous chest x-ray. Left IJ central line and left chest pacemaker are re- identified. There is tenting of the right hemidiaphragm, stable. There is diffuse interstitial promi nence, stable. There is prominence of the right hilum, stable. The heart is enlarged. The central pu lmonary arteries are ectatic. IMPRESSION: 1. Small residual right apical pneumothorax persists, with thoracostomy tube in place. 2. Cardiomegaly and interstitial prominence suggestive of mild CHF. 3. Pulmonary arterial hypertension atherosclerotic vascular disease.
[2024-11-18 06:52] LABS: BASOPHILS # (AUTO) 0.1 X10'3 (0-0.2); BASOPHILS % (AUTO) 0.4 % (0-1); EOSINOPHILS # (AUTO) 0.1 X10'3 (0-0.9); EOSINOPHILS % (AUTO) 0.5 % (0-6); LYMPHOCYTES # (AUTO) 1.7 X10'3 (1.1-4.8); LYMPHOCYTES % (AUTO) 12.6 % (21-51); MEAN CORPUSCULAR HEMOGLOBIN 30.7 PG (27.0-31.0); MEAN CORPUSCULAR HGB CONC 34.4 g/dL (33.0-36.5); MEAN CORPUSCULAR VOLUME 89.1 FL (78-98); MEAN PLATELET VOLUME 8.8 FL (7.4-10.4); MONOCYTES # (AUTO) 1.5 X10'3 (0-0.9); NEUTROPHILS # (AUTO) 10.1 X10'3 (1.8-7.7); NEUTROPHILS % (AUTO) 75.5 % (42-75); PLATELET COUNT 205 X10'3 (140-440); RED BLOOD COUNT 2.18 X10'6 (4.70-6.10); RED CELL DISTRIBUTION WIDTH 16.2 % (11.5-14.5); WHITE BLOOD COUNT 13.4 X10'3 (4.5-11.0)
[2024-11-18] MEDS: tamsulosin 0.4mg capsule PO SCH (07:25)
[2024-11-18] MEDS: docusate sod 100mg capsule PO SCH (07:25)
[2024-11-18] MEDS: multivitamins, therapeutics tablet PO SCH (07:26)
[2024-11-18] MEDS: linagliptin 5mg tablet PO SCH (07:26)
[2024-11-18] MEDS: calcium acetate 667mg (PhosLO) capsule PO SCH (07:26)
[2024-11-18] MEDS: cholecalciferol (vitamin D3) 400 unit (10mcg) tablet PO SCH (07:26)
[2024-11-18 07:29] LABS: HEMATOCRIT 19.4 % (42.0-52.0); HEMOGLOBIN 6.7 g/dl (14.0-17.9)
[2024-11-18] MEDS ORDERED: CINNAMON BARK PO SCH (08:00)
[2024-11-18 08:11] LABS: HBSAG SCREEN Negative (Negative)
--- NOTE | 2024-11-18 11:28 | PROGRESS NOTE ---
Progress Note ID Providers to CC ~ Progress Note Progress Note: arousable/vss/lungs-no leak/cxr noted/labs noted a/p 1. s/p robo rul-slow progress/cont supportive care MERLIN WEAVER MD Nov 18, 2024 11:28
[2024-11-18] MEDS: INSULIN LISPRO 100 UNIT/ML INSULN.PEN MULTI-DOSE SQ SCH (12:57)
[2024-11-18 15:14] LABS: BASOPHILS # (AUTO) 0.1 X10'3 (0-0.2); BASOPHILS % (AUTO) 0.4 % (0-1); EOSINOPHILS # (AUTO) 0.1 X10'3 (0-0.9); EOSINOPHILS % (AUTO) 0.5 % (0-6); LYMPHOCYTES % (AUTO) 13.9 % (21-51); MEAN CORPUSCULAR HEMOGLOBIN 29.9 PG (27.0-31.0); MEAN CORPUSCULAR HGB CONC 33.9 g/dL (33.0-36.5); MEAN CORPUSCULAR VOLUME 88.1 FL (78-98); MEAN PLATELET VOLUME 8.6 FL (7.4-10.4); MONOCYTES # (AUTO) 1.4 X10'3 (0-0.9); MONOCYTES % (AUTO) 9.4 % (2-12); NEUTROPHILS # (AUTO) 10.9 X10'3 (1.8-7.7); NEUTROPHILS % (AUTO) 75.8 % (42-75); PLATELET COUNT 202 X10'3 (140-440); RED BLOOD COUNT 2.27 X10'6 (4.70-6.10); RED CELL DISTRIBUTION WIDTH 16.2 % (11.5-14.5); WHITE BLOOD COUNT 14.3 X10'3 (4.5-11.0)
[2024-11-18 15:24] LABS: HEMOGLOBIN 6.8 g/dl (14.0-17.9)
--- NOTE | 2024-11-18 15:29 | PROGRESS NOTE ---
Progress Note Dictate Providers to CC ~ Antibiotic Ordered?: N/A Subjective Subjective He reports doing better today, has some chest pain with respirations, laying down hunched in bed, I helped him sit up, and he felt a little better, he is not up in a chair or utilizing PT at this time, he had dialysis yesterday without complications Objective Vitals Vital Signs Date Time Temp Pulse Resp B/P (MAP) Pulse Ox O2 Delivery O2 Flow Rate FiO2 11/18/24 12:34 101.0 68 24 124/40 11/18/24 11:00 88 Room Air 11/17/24 20:00 96 11/17/24 19:36 0 General: Well appearing, well nourished, in no distress. Oriented x 3, Neck: Supple, without JVD Heart: Regular rate and rhythm, no murmur Lungs: Clear to auscultation and percussion Abdomen: Bowel sounds normal, no tenderness, organomegaly, masses, or hernia Extremities: No cyanosis, no edema, peripheral pulses intact Neurologic: Sensation to touch, normal. DTRs normal moves all extremities spontaneously. Lab Results: 11/18/24 0445 11/18/24 0445 Coagulation Studies Laboratory Tests Test 11/02/24 16:02 Prothrombin Time 10.7 SECONDS (9.0-12.0) INR International Normalized Ratio 1.0 INR Activated Partial Thromboplast Time 28 SECONDS (22-32) Other Results I & O 11/18/24 07:00 Intake Total 1310 ml Output Total 2620 ml Balance -1310 ml Intake Oral 610 ml IV Total 200 ml Hemodialysis 500 ml Output Urine Total 370 ml Chest Tube Drainage Total 250 ml Hemodialysis 2000 ml Problem\Assessment\Plan Problems/Diagnosis: (1) S/P lobectomy of lung Assessment & Plan: Improved, some pain with inspiration otherwise doing well, not tachypneic, breathing not labored, managed by surgeon. (2) ESRD (end stage renal disease) on dialysis Assessment & Plan: ESRD-HD, Wednesday schedule we will continue that while in the hospital, last dialysis was yesterday, we will plan on dialysis for Wednesday. All relevant labs and reports were reviewed to develop this dialysis prescription today iHD 3 Hours Access TDC Dialyzer Elisio 15H BFR 350 DFR 2 X BFR Na 140 K 3 HCO3 34 Ca 2.5 SUNITHA 10K Units Albumion N Mannitol N UF 1-2 liters as tolerated 1. Anemia-CKD, hemoglobin goal between 10 and 11.5, SUNITHA 10,000 units with dialysis 2. 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
--- NOTE | 2024-11-18 18:00 | RADIOLOGY REPORT ---
Procedure: CT CT [facility] Study Date and Requested Time: 11/18/2024 05:28 PM History: R/O CVA Comparison: MR MRI HEAD on DOS: 11/07/24 Dose: CTDI: 63.23 mGy DLP: 1160.98 mGycm Technique: Multiplanar images obtained through the brain without intravenous contrast. Findings: Diffuse brain atrophy. Mild chronic small vessel ischemic changes. No hemorrhages, masses, mass effect, midline shift, herniation or cytotoxic edema following a large v ascular territory. No intra-axial or extra-axial fluid collections. No evidence of hydrocephalus. The basal cisterns are patent. The pituitary gland, sella and parasellar regions are unremarkable. The cerebellar tonsils are in nor mal position. The cerebellum is unremarkable. The orbits and globes are unremarkable. Mild mucoperiosteal thickening of the maxillary sinuses with mucous retention cysts within the sphenoid sinuses. Otherwise, the paranasal sinuses and mastoids ar e clear. There are no worrisome calvarial lesions. Partially imaged 6 x 12 mm nodular density within the left parotid gland. Impression: No evidence of acute intracranial abnormality.
[2024-11-18] MEDS ORDERED: non-formulary drug (Doxylamine Succinate (Unisom) 1 TAB) PO SCH (21:00)
[2024-11-19] VITALS (7 sets, daily range): BP systolic 111–174; BP diastolic 41–54; PULSE 60–76; RESP 16–24; TEMP 97.1–98; O2SAT 91–98
--- NOTE | 2024-11-19 06:28 | RADIOLOGY REPORT ---
EXAM: DI CHEST,SINGLE VIEW HISTORY: POST OP COMPARISON: DI CHEST,SINGLE VIEW on DOS: 11/18/24, DI CHEST,SINGLE VIEW on DOS: 11/17/24, DI CHEST,SING LE VIEW on DOS: 11/16/24, DI CHEST,SINGLE VIEW on DOS: 11/16/24, chest CT dated 11/16/2024. TECHNIQUE: Portable AP view of the chest was performed. FINDINGS: Left chest pacemaker, right IJ central line, and right thoracostomy tube are re-identified. There is right apical pneumothorax, slightly larger than that seen on the previous chest x-ray. There is right upper lobe atelectasis. There are bilateral lung base mild infiltrates. Cardiomegaly and prominence of the right hilum are stable. The central pulmonary arteries are ectatic. IMPRESSION: 1. Right apical pneumothorax is slightly larger than that seen on the previous chest x-ray. Thoracos olena tube in place. 2. Stable mild bilateral lung base opacities likely due to atelectasis. 3. Cardiomegaly pulmonary arterial hypertension.
[2024-11-19 06:35] LABS: BASOPHILS % (AUTO) 0.3 % (0-1); EOSINOPHILS # (AUTO) 0.1 X10'3 (0-0.9); LYMPHOCYTES # (AUTO) 1.7 X10'3 (1.1-4.8); LYMPHOCYTES % (AUTO) 13.1 % (21-51); MEAN CORPUSCULAR HEMOGLOBIN 30.4 PG (27.0-31.0); MEAN CORPUSCULAR VOLUME 89.2 FL (78-98); MEAN PLATELET VOLUME 8.4 FL (7.4-10.4); MONOCYTES # (AUTO) 1.2 X10'3 (0-0.9); MONOCYTES % (AUTO) 9.2 % (2-12); NEUTROPHILS % (AUTO) 76.4 % (42-75); PLATELET COUNT 191 X10'3 (140-440); RED BLOOD COUNT 2.13 X10'6 (4.70-6.10)
--- NOTE | 2024-11-19 06:49 | PROGRESS NOTE ---
Progress Note Dictate Providers to CC ~ Progress Note: This is a 73-year-old male with history of end-stage renal disease, M,W, F schedule has not missed any dialysis recently, new diagnosis of squamous cell carcinoma of lung was admitted in the hospital for a right upper lung lobectomy. Robotic thoracoscopic assisted right upper lobectomy, lymph node dissection required chest tube placement for drainage, performed without reported complications by Dr. Cruz on 11/16/2024. Antibiotic Ordered?: N/A Subjective Subjective He reports doing better today, he still has some chest pain with respirations, laying down hunched in bed, he is not up in a chair or utilizing PT at this time, he had dialysis Wednesday without complications Objective Vitals Vital Signs Date Time Temp Pulse Resp B/P (MAP) Pulse Ox O2 Delivery O2 Flow Rate FiO2 11/19/24 08:24 162/47 (85) 11/19/24 06:57 60 16 94 Nasal Cannula* 2 28 11/19/24 02:00 98.0 General: Well appearing, well nourished, in no distress. Oriented x 3, Neck: Supple, without JVD Heart: Regular rate and rhythm, no murmur Lungs: Clear to auscultation and percussion Abdomen: Bowel sounds normal, no tenderness, organomegaly, masses, or hernia Extremities: No cyanosis, no edema, peripheral pulses intact Neurologic: Sensation to touch, normal. DTRs normal moves all extremities spontaneously. Lab Results: 11/19/24 0552 11/19/24 0552 Coagulation Studies Laboratory Tests Test 11/02/24 16:02 Prothrombin Time 10.7 SECONDS (9.0-12.0) INR International Normalized Ratio 1.0 INR Activated Partial Thromboplast Time 28 SECONDS (22-32) Other Results I & O 11/19/24 07:00 Intake Total 600.5 ml Output Total 780 ml Balance -179.5 ml Intake Oral 500 ml Blood Product 100.5 ml Output Urine Total 600 ml Chest Tube Drainage Total 180 ml Problem\Assessment\Plan Problems/Diagnosis: (1) S/P lobectomy of lung Assessment & Plan: Improved, some pain with inspiration otherwise doing well, not tachypneic, breathing not labored, managed by surgeon. (2) ESRD (end stage renal disease) on dialysis Assessment & Plan: ESRD-HD, Wednesday schedule we will continue that while in the hospital, last dialysis was yesterday, we will plan on dialysis for Wednesday. All relevant labs and reports were reviewed to develop this dialysis prescription today iHD 3 Hours Access TDC Dialyzer Elisio 15H BFR 350 DFR 2 X BFR Na 140 K 3 HCO3 34 Ca 2.5 SUNITHA 10K Units Albumion N Mannitol N UF 1-2 liters as tolerated 1. Anemia-CKD, hemoglobin goal between 10 and 11.5, SUNITHA 10,000 units with dialysis 2. 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
[2024-11-19 06:53] LABS: HEMOGLOBIN 6.5 g/dl (14.0-17.9)
[2024-11-19 07:25] LABS: ALANINE AMINOTRANSFERASE 17 U/L (12-78); ALBUMIN 2.8 G/DL (3.4-5.0); ALBUMIN/GLOBULIN RATIO 0.8 (1.1-1.5); ALKALINE PHOSPHATASE 47 IU/L (46-116); ANION GAP 10 (8-16); ASPARTATE AMINO TRANSFERASE 35 U/L (10-37); BILIRUBIN,TOTAL 0.6 MG/DL (0.1-1.0); BLOOD UREA NITROGEN 64 MG/DL (7-18); BUN/CREATININE RATIO 8.8 (10.0-20.0); CALCIUM 8.7 MG/DL (8.5-10.1); CHLORIDE 104 MMOL/L (99-107); CREATININE 7.27 MG/DL (0.60-1.10); GLUCOSE 246 MG/DL (70-104); MAGNESIUM 2.1 MG/DL (1.5-2.4); PHOSPHORUS 3.4 MG/DL (2.3-4.5); POTASSIUM 3.7 MMOL/L (3.5-5.1); SODIUM 140 MMOL/L (135-145); TOTAL CARBON DIOXIDE 26.4 MMOL/L (24-32); TOTAL PROTEIN 6.1 G/DL (6.4-8.2); eCRCL 9 ML/MIN; eGFR 7 ML/MIN
--- NOTE | 2024-11-19 10:52 | PROGRESS NOTE ---
Progress Note ID Providers to CC ~ Progress Note Progress Note: much more awake/vss/lungs-no leak/cxr stable a/p 1. s/p rul-doing well/pt MERLIN WEAVER MD Nov 19, 2024 10:52
[2024-11-20] VITALS (24 sets, daily range): BP systolic 109–188; BP diastolic 43–79; PULSE 59–71; RESP 15–22; TEMP 97–98.6; O2SAT 91–98
[2024-11-20 04:52] LABS: BASOPHILS # (AUTO) 0.1 X10'3 (0-0.2); BASOPHILS % (AUTO) 0.5 % (0-1); EOSINOPHILS # (AUTO) 0.4 X10'3 (0-0.9); EOSINOPHILS % (AUTO) 3.1 % (0-6); LYMPHOCYTES # (AUTO) 2.2 X10'3 (1.1-4.8); LYMPHOCYTES % (AUTO) 19.7 % (21-51); MEAN CORPUSCULAR HEMOGLOBIN 30.2 PG (27.0-31.0); MEAN CORPUSCULAR HGB CONC 34.3 g/dL (33.0-36.5); MEAN CORPUSCULAR VOLUME 87.9 FL (78-98); MEAN PLATELET VOLUME 8.5 FL (7.4-10.4); MONOCYTES # (AUTO) 1.2 X10'3 (0-0.9); MONOCYTES % (AUTO) 10.6 % (2-12); NEUTROPHILS # (AUTO) 7.3 X10'3 (1.8-7.7); NEUTROPHILS % (AUTO) 66.1 % (42-75); PLATELET COUNT 203 X10'3 (140-440); RED BLOOD COUNT 2.08 X10'6 (4.70-6.10); RED CELL DISTRIBUTION WIDTH 15.9 % (11.5-14.5); WHITE BLOOD COUNT 11.1 X10'3 (4.5-11.0)
[2024-11-20 04:58] LABS: ALANINE AMINOTRANSFERASE 55 U/L (12-78); ALBUMIN 2.6 G/DL (3.4-5.0); ALBUMIN/GLOBULIN RATIO 0.8 (1.1-1.5); ALKALINE PHOSPHATASE 56 IU/L (46-116); ANION GAP 10 (8-16); ASPARTATE AMINO TRANSFERASE 115 U/L (10-37); BILIRUBIN,TOTAL 0.5 MG/DL (0.1-1.0); BLOOD UREA NITROGEN 83 MG/DL (7-18); BUN/CREATININE RATIO 11.1 (10.0-20.0); CALCIUM 8.5 MG/DL (8.5-10.1); CHLORIDE 102 MMOL/L (99-107); CREATININE 7.51 MG/DL (0.60-1.10); GLUCOSE 227 MG/DL (70-104); MAGNESIUM 2.2 MG/DL (1.5-2.4); PHOSPHORUS 5.1 MG/DL (2.3-4.5); POTASSIUM 3.8 MMOL/L (3.5-5.1); SODIUM 140 MMOL/L (135-145); eCRCL 9 ML/MIN; eGFR 7 ML/MIN
[2024-11-20 04:59] LABS: HEMATOCRIT 18.3 % (42.0-52.0); HEMOGLOBIN 6.3 g/dl (14.0-17.9)
--- NOTE | 2024-11-20 07:09 | RADIOLOGY REPORT ---
EXAM: XR Chest, 1 View CLINICAL INDICATION: Pain TECHNIQUE: Frontal view of the chest. COMPARISON: XR Chest dated 11/19/2024 FINDINGS: LUNGS AND PLEURAL SPACES: See below. HEART: Cardiomegaly with mild congestion. MEDIASTINUM: Unremarkable. Normal mediastinal contour. BONES/JOINTS: Unremarkable. No acute fracture. TUBES, LINES AND DEVICES: Right-sided chest tube. Small right apical pneumothorax. Left-sided card iac pacemaker. IMPRESSION: 1. Right-sided chest tube. Small right apical pneumothorax. 2. Cardiomegaly with mild congestion.
[2024-11-20] MEDS: heparin 1,000unit/ml 10ml vial 10 ML IV ONE (07:51)
[2024-11-20] MEDS: heparin 1,000 units/ml 10ml inj IV ONE (07:51)
[2024-11-20] MEDS: heparin 1,000 units/ml 10ml inj HE ONE ×2 (07:51)
[2024-11-20] MEDS: LIDOcaine 1% (10mg/ml) 2ml vial SQ ONE (07:52)
[2024-11-20] MEDS ORDERED: normal saline 1000ml 100 ML IV PRN (08:00)
[2024-11-20] MEDS: acetaminophen 325mg tablet PO ONE (10:39)
[2024-11-20] MEDS: EPOETIN ALFA-EPBX 20,000 UNIT/ML 1 ML MDV IV ONE (14:07)
[2024-11-20 14:14] LABS: HEMATOCRIT 24.9 % (42.0-52.0); HEMOGLOBIN 8.5 g/dl (14.0-17.9); MEAN CORPUSCULAR HEMOGLOBIN 29.9 PG (27.0-31.0); MEAN CORPUSCULAR HGB CONC 33.9 g/dL (33.0-36.5); MEAN CORPUSCULAR VOLUME 88.1 FL (78-98); MEAN PLATELET VOLUME 8.5 FL (7.4-10.4); PLATELET COUNT 241 X10'3 (140-440); RED BLOOD COUNT 2.83 X10'6 (4.70-6.10); RED CELL DISTRIBUTION WIDTH 15.5 % (11.5-14.5); WHITE BLOOD COUNT 12.3 X10'3 (4.5-11.0)
--- NOTE | 2024-11-20 14:31 | PROGRESS NOTE- Residence ---
Progress Note - Resident Providers to CC Resident Creating Document: PEDRO YO RES ~ Antibiotic Timeout Antibiotic Ordered?: No Subjective Patient was seen and examined at the bedside today. He reported that his chest tube might be out today,output in the last 24 hours< 110 mL. He will be getting physical therapy later in the afternoon. Got dialysis done this morning Objective Vital Signs Date Time Temp Pulse Resp B/P (MAP) Pulse Ox O2 Delivery O2 Flow Rate FiO2 11/20/24 11:55 98.0 62 22 170/64 (99) 96 Nasal Cannula 3.0 11/20/24 05:28 21 Result Diagram: 11/20/24 1403 11/20/24 0430 General Appearance: Awake, alert, oriented HEENT: Atraumatic, normocephalic, GIBSON, EOMI. Normal oropharynx, moist oral mucosa. Neck: Trachea midline. Supple, normal ROM. No JVD, bruit, lymphadenopathy or masses, or other lesions. Respiratory: Breathing sounds clear to; no crackles or wheezes Cardiac: RRR,. No murmur, normal S1-S2 GI: No tenderness. abdomen symmetric, nondistended, soft, No guarding, no rebound or rigidity. Extremities: Normal ROM, no swelling, non-tender. Distal pulses full symmetrical, no clubbing, cyanosis, edema, capillary refill less than 2 seconds. Skin: Intact, dry, warm, bruising is present in bilateral upper extremities and lower extremities. Neuro: Speech is clear, alert and oriented x4. No sensory or motor deficit, DTRs normal. Cranial nerves II to XII intact. Right-sided chest tube, Coagulation Studies Laboratory Tests Test 11/02/24 16:02 Prothrombin Time 10.7 SECONDS (9.0-12.0) INR International Normalized Ratio 1.0 INR Activated Partial Thromboplast Time 28 SECONDS (22-32) HEART Score Stable HD today. Bill in good spirits, H/H requires 1u PC, HD MWF. 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 Plan Plan ssessment This is a 73-year-old male with history of end-stage renal disease, squamous cell carcinoma of lung was admitted in the hospital for a right upper lung lobectomy. Robotic thoracoscopic assisted right upper lobectomy and node dissection and chest tube placement was done by Dr. Cruz on 11/16/2024. 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 Currently he is on hemodialysis, scheduled Wednesday, Wednesday, Wednesday. Av fistula is present on the right arm. Plan End-stage renal disease-on hemodialysis Dialysis schedule-Wednesday, Wednesday, Wednesday Got dialyzed today morning. Access AV fistula on right arm Also has anemia secondary to CKD, goal hemoglobin between 10 and 11.5. [place] 99855 units given with dialysis. Received 1 unit of blood transfusion on 11/18 and 11/20 Potassium levels in the normal range Hyperphosphatemia with a phosphorus 5.1, goal phosphorus less than 5.5, continue calcium polycarbophil 625 mg t.i.d. Anemia Also has anemia secondary to CKD, goal hemoglobin between 10 and 11.5. ESR 63638 units given with dialysis. Received 1 unit of blood transfusion on 11/18 and 11/20 s/p right upper lung lobectomy Right-sided chest tube in place. Chest tube will be removed today. -managed by Dr.Brusett Pedro yo M.D Nephrology resident PGY1 Date of Service: Nov 20, 2024 Billing Provider: SRAVANI VAZQUEZ MD, PRAVAHIKA, RES Nov 20, 2024 14:31 SRAVANI VAZQUEZ MD Nov 20, 2024 18:25
--- NOTE | 2024-11-20 15:42 | PROGRESS NOTE ---
Progress Note ID Providers to CC ~ Progress Note Progress Note: pain improving/vss/lungs-no leak/labs noted/cxr noted a/p 1. s/p rul-doing well/needs rehab MERLIN WEAVER MD Nov 20, 2024 15:42
[2024-11-20] MEDS: magnesium hydroxide 30ml (MOM) UD suspension PO SCH (19:06)
[2024-11-21] VITALS (22 sets, daily range): BP systolic 122–165; BP diastolic 35–102; PULSE 60–64; RESP 12–24; TEMP 97.3; O2SAT 90–99
--- NOTE | 2024-11-21 02:32 | RADIOLOGY REPORT ---
CHEST RADIOGRAPH Indication: EVAL POST CT REMOVAL W/ INCREASED CREPITUS Technique: Single frontal view of the chest was obtained COMPARISON: DI CHEST,SINGLE VIEW on DOS: 11/20/24, DI CHEST,SINGLE VIEW on DOS: 11/19/24, DI CHEST,SING LE VIEW on DOS: 11/18/24, DI CHEST,SINGLE VIEW on DOS: 11/17/24, DI CHEST,SINGLE VIEW on DOS: 11/16/24 FINDINGS: Lines and Tubes: Status post interval removal of right chest tube. Lungs: New extensive bilateral subcutaneous emphysema extending into the neck and within the bilatera l chest brandon. Grossly stable appearing right apical pneumothorax. No evidence of focal consolidation . No definite evidence of pleural effusion. Cardiomediastinal contours: Trace pneumomediastinum. Atherosclerotic vascular calcifications. Bones: Unremarkable IMPRESSION: 1. Stable right apical pneumothorax and new diffuse bilateral subcutaneous emphysema with trace pneum omediastinum status post interval removal of right chest tube.
[2024-11-21 03:15] LABS: BASOPHILS % (AUTO) 0.2 % (0-1); EOSINOPHILS # (AUTO) 0.1 X10'3 (0-0.9); HEMOGLOBIN 7.9 g/dl (14.0-17.9); LYMPHOCYTES # (AUTO) 2.4 X10'3 (1.1-4.8); LYMPHOCYTES % (AUTO) 17.1 % (21-51); MEAN CORPUSCULAR HEMOGLOBIN 30.1 PG (27.0-31.0); MEAN CORPUSCULAR HGB CONC 34.3 g/dL (33.0-36.5); MEAN CORPUSCULAR VOLUME 87.8 FL (78-98); MEAN PLATELET VOLUME 8.2 FL (7.4-10.4); MONOCYTES # (AUTO) 1.2 X10'3 (0-0.9); MONOCYTES % (AUTO) 8.3 % (2-12); NEUTROPHILS # (AUTO) 10.2 X10'3 (1.8-7.7); NEUTROPHILS % (AUTO) 73.4 % (42-75); PLATELET COUNT 227 X10'3 (140-440); RED BLOOD COUNT 2.62 X10'6 (4.70-6.10); RED CELL DISTRIBUTION WIDTH 15.5 % (11.5-14.5); WHITE BLOOD COUNT 13.9 X10'3 (4.5-11.0)
[2024-11-21 03:28] LABS: ALANINE AMINOTRANSFERASE 131 U/L (12-78); ALBUMIN 2.6 G/DL (3.4-5.0); ALBUMIN/GLOBULIN RATIO 0.8 (1.1-1.5); ALKALINE PHOSPHATASE 68 IU/L (46-116); ANION GAP 10 (8-16); ASPARTATE AMINO TRANSFERASE 232 U/L (10-37); BILIRUBIN,TOTAL 0.7 MG/DL (0.1-1.0); BLOOD UREA NITROGEN 52 MG/DL (7-18); BUN/CREATININE RATIO 10.9 (10.0-20.0); CALCIUM 8.4 MG/DL (8.5-10.1); CHLORIDE 100 MMOL/L (99-107); CREATININE 4.78 MG/DL (0.60-1.10); GLUCOSE 239 MG/DL (70-104); PHOSPHORUS 3.7 MG/DL (2.3-4.5); POTASSIUM 3.9 MMOL/L (3.5-5.1); SODIUM 137 MMOL/L (135-145); TOTAL CARBON DIOXIDE 27.3 MMOL/L (24-32); eCRCL 14 ML/MIN; eGFR 12 ML/MIN
--- NOTE | 2024-11-21 06:47 | RADIOLOGY REPORT ---
EXAM: XR Chest, 1 View CLINICAL INDICATION: Pain TECHNIQUE: Frontal view of the chest. COMPARISON: XR Chest dated 11/21/2024 FINDINGS: LUNGS AND PLEURAL SPACES: Soft tissue emphysema. Probable right-sided pneumothorax, likely larger t marsh prior exam. HEART: Unremarkable. No cardiomegaly. MEDIASTINUM: Unremarkable. Normal mediastinal contour. BONES/JOINTS: Unremarkable. No acute fracture. TUBES, LINES AND DEVICES: Left-sided cardiac pacemaker. IMPRESSION: Soft tissue emphysema. Probable right-sided pneumothorax, likely larger than prior exam.
[2024-11-21] MEDS ORDERED: ASPI-1265 PO (09:08)
[2024-11-21] MEDS ORDERED: LYR25C PO (09:11)
[2024-11-21] MEDS ORDERED: SITA25TA3 PO (09:12)
[2024-11-21] MEDS ORDERED: KETO120S5 TP (09:15)
[2024-11-21] MEDS ORDERED: TRIA15CR62 TOP (09:16)
--- NOTE | 2024-11-21 12:22 | RADIOLOGY REPORT ---
Procedure: CT CT CHEST Reason for study/Clinical History: Status Post Lobectomy Comparison Study: CT CT CHEST on DOS: 11/16/24 TECHNIQUE: Multidetector CT of the chest was performed from the lung apices to the upper abdomen with out the use of intravenous contract. Axial, coronal and sagittal multiplanar reformats were performed . Radiation Dose Information: CT Dose: CTDI volume is 18.3 mGy. Dose-length product is 700 mGy*cm The dose indicators for CT are the volume Computed Tomography (CT) Dose Index (CTDIvol) and the Dose Length Product (DLP), and are measured in units of mGy and mGy-cm, respectively. These indicators are not patient dose, but values generated from the CT scanner acquisition factors. The report includes radiation exposure data for exposures received during this examination. FINDINGS: Lower neck: Unremarkable. Lungs: Right lower lobe atelectasis/consolidation. Heart/Vascular Structures: Cardiomegaly. Coronary artery calcifications. Vascular calcifications of t he aorta. Left chest wall pacemaker. Lymph Nodes: No adenopathy Pleura: Small right pleural effusion. Small right basilar pneumothorax. Musculoskeletal: No acute osseous abnormality. Soft tissues: Large volume subcutaneous emphysema. Large volume pneumomediastinum. Upper abdomen: Punctate foci of intraperitoneal gas adjacent to the right hepatic lobe versus artifac t. IMPRESSION: Large volume subcutaneous emphysema and pneumomediastinum. Small right basilar pneumothorax. Small right pleural effusion. Right lower lobe atelectasis/consolidation. Punctate focus of intraperitoneal gas adjacent to the right hepatic lobe / dome posteriorly versus ar tifact. This is likely unrelated to abdominal pathology.
--- NOTE | 2024-11-21 14:15 | PROCEDURE NOTE CC ---
Procedure Note CC Providers to CC ~ Procedure Name: Thora-Vent Description: Indication: PTX Consent: Pt Time-out: Done Site: Right Complication: None EBL: 0ml Sepsis Screening Reassessment Date: Nov 21, 2024 Skin Color: Normal SO CRENSHAW MD Nov 21, 2024 14:15
[2024-11-21] MEDS: LIDOcaine 1% (10mg/ml) 2ml vial ONE (14:18)
--- NOTE | 2024-11-21 14:56 | RADIOLOGY REPORT ---
CHEST RADIOGRAPH Indication: S/P Thoracentesis Technique: Single frontal view of the chest was obtained Comparison: DI CHEST,SINGLE VIEW on DOS: 11/21/24, DI CHEST,SINGLE VIEW on DOS: 11/21/24, DI CHEST,SING LE VIEW on DOS: 11/20/24 FINDINGS: Lines and Tubes: Right-sided chest tube is noted in place terminating over the right mid lateral mid lung zone. Additional chest tube is noted in place over the right upper lung zone. Left-sided approac h dual lead pacemaker terminating within right atrium and right ventricle. Lungs: Large volume subcutaneous emphysema limiting evaluation of the overlying structures. Moderate right-sided pneumothorax ; significantly improved from prior imaging. Minimal blunting of the right costophrenic angle. Interstitial prominence bilateral lungs. Cardiomediastinal contours: Unremarkable Bones: No acute osseous abnormality. IMPRESSION: Moderate right-sided pneumothorax; improve from prior imaging. Status post Right-sided chest tube pl acement. Prominent subcutaneous emphysema limiting evaluation of the adjacent structures. Mild interstitial prominence. Minimal blunting of the right costophrenic angle which may be from ate lectasis/trace effusion.
[2024-11-21 15:28] LABS: % IRON SATURATION 13 % (11-46); IRON 25 UG/DL (53-167); TOTAL IRON BINDING CAPACITY 192 UG/DL (259-388)
[2024-11-21 16:21] LABS: FERRITIN 3264 NG/ML (26-388)
[2024-11-21] MEDS: morphine 2 MG/ML inj. syringe IV PRN (16:40)
--- NOTE | 2024-11-21 17:17 | PROGRESS NOTE ---
Progress Note ID Providers to CC ~ Progress Note Progress Note: increased crepitus/vss/lungs-cta/labs noted/ct noted a/p 1. s/p rul-now with increased air leak/chest tube placed MERLIN WEAVER MD Nov 21, 2024 17:17
[2024-11-21] MEDS: NUT.TX.IMP.RENAL FXN,LAC-REDUC (Nepro) 237 ML VANILLA PO SCH (17:30)
--- NOTE | 2024-11-21 18:25 | PROGRESS NOTE- Residence ---
Progress Note - Resident Providers to CC Resident Creating Document: CONNIE BEYER, UDAY ~ Central Line/PICC still needed: No Gold-Non Protocol Gold Indications Met/Not Met: F/C Indications Not Met Antibiotic Timeout Antibiotic Ordered?: No Subjective Patient was seen and examined in the ICU. Chest tube was removed yesterday, postop developed subcutaneous emphysema. Scheduled for dialysis tomorrow. Objective Vital Signs Date Time Temp Pulse Resp B/P (MAP) Pulse Ox O2 Delivery O2 Flow Rate FiO2 11/21/24 17:55 98.1 60 19 150/59 (89) 97 Nasal Cannula 2.0 11/20/24 21:12 32 Result Diagram: 11/21/24 0305 11/21/24 030 General Appearance: Awake, alert, oriented HEENT: Atraumatic, normocephalic, GIBSON, EOMI. Normal oropharynx, moist oral mucosa. Neck: Trachea midline. Supple, normal ROM. No JVD, bruit, lymphadenopathy or masses, or other lesions. Respiratory: Breathing sounds clear to; no crackles or wheezes Cardiac: RRR,. No murmur, normal S1-S2 GI: No tenderness. abdomen symmetric, nondistended, soft, No guarding, no rebound or rigidity. Extremities: Normal ROM, no swelling, non-tender. Distal pulses full symmetrical, no clubbing, cyanosis, edema, capillary refill less than 2 seconds. Skin: Intact, dry, warm, bruising is present in bilateral upper extremities and lower extremities. Diffuse subcutaneous emphysema. Neuro: Speech is clear, alert and oriented x4. No sensory or motor deficit, DTRs normal. Cranial nerves II to XII intact. Right-sided chest tube, Coagulation Studies Laboratory Tests Test 11/02/24 16:02 Prothrombin Time 10.7 SECONDS (9.0-12.0) INR International Normalized Ratio 1.0 INR Activated Partial Thromboplast Time 28 SECONDS (22-32) Advance Care Planning Advanced Care plannin - 30 Minutes Plan Plan Assessment This is a 73-year-old male with history of end-stage renal disease, squamous cell carcinoma of lung was admitted in the hospital for a right upper lung lobectomy. Robotic thoracoscopic assisted right upper lobectomy and node dissection and chest tube placement was done by Dr. Cruz on 11/16/2024. 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 Currently he is on hemodialysis, scheduled Wednesday, Wednesday, Wednesday. Av fistula is present on the right arm. Plan End-stage renal disease-on hemodialysis Dialysis schedule-Wednesday, Wednesday, Wednesday Got dialyzed today morning. Access AV fistula on right arm Also has anemia secondary to CKD, goal hemoglobin between 10 and 11.5. [place] 10612 units given with dialysis. Received 1 unit of blood transfusion on 11/18 and 11/20 Potassium levels in the normal range Hyperphosphatemia with a phosphorus 5.1, goal phosphorus less than 5.5, continue calcium polycarbophil 625 mg t.i.d. 11/21/2024-scheduled for dialysis tomorrow. Anemia Also has anemia secondary to CKD, goal hemoglobin between 10 and 11.5. ESR 39466 units given with dialysis. Received 1 unit of blood transfusion on 11/18 and 11/1911/21/2024-iron profile ordered Elevated transaminases AST , ALT-232, 131 We will consider stopping atorvastatin if continues to rise. s/p right upper lung lobectomy Right-sided chest tube in place. Chest tube will be removed today. -managed by 11/21/2024 -chest tube has been removed and post that patient developed subcutaneous emphysema. To CT was done which showed large volume subcutaneous emphysema and pneumomediastinum. Small bilateral basilar pneumothorax with small right pleural effusion. Connie beyer M.D Nephrology resident PGY1 Attending Note: The patient is seen and examined. He has been seen in critical care unit. He is very puffy from the SQ empysema. Now has the thoravent in place and RN feels it is helping to some extent. remains critically ill. not on ventilator. will do HD tomorrow. eye lids are puffy and he is finding it difficult to see us at this time hoping for the best in benita due course. Artem Connor MD Nephrology/[facility] Date of Service: Nov 21, 2024 Billing Provider: ARTEM CONNOR MD, PRAVAHIKA, RES Nov 21, 2024 18:25 ARTEM CONNOR MD Nov 21, 2024 19:56
[2024-11-21] MEDS: pregabalin 25mg capsule PO SCH (20:01)
[2024-11-22] VITALS (35 sets, daily range): BP systolic 101–179; BP diastolic 38–70; PULSE 60–74; RESP 11–20; TEMP 97.1–98.2; O2SAT 90–99
[2024-11-22 01:41] LABS: BASOPHILS % (AUTO) 0.1 % (0-1); EOSINOPHILS # (AUTO) 0.2 X10'3 (0-0.9); EOSINOPHILS % (AUTO) 1.3 % (0-6); HEMATOCRIT 23.4 % (42.0-52.0); HEMOGLOBIN 8.1 g/dl (14.0-17.9); LYMPHOCYTES # (AUTO) 2.4 X10'3 (1.1-4.8); LYMPHOCYTES % (AUTO) 16.4 % (21-51); MEAN CORPUSCULAR HEMOGLOBIN 30.1 PG (27.0-31.0); MEAN CORPUSCULAR HGB CONC 34.4 g/dL (33.0-36.5); MEAN CORPUSCULAR VOLUME 87.5 FL (78-98); MEAN PLATELET VOLUME 8.4 FL (7.4-10.4); MONOCYTES # (AUTO) 1.1 X10'3 (0-0.9); MONOCYTES % (AUTO) 7.4 % (2-12); NEUTROPHILS % (AUTO) 74.8 % (42-75); PLATELET COUNT 238 X10'3 (140-440); RED BLOOD COUNT 2.67 X10'6 (4.70-6.10); RED CELL DISTRIBUTION WIDTH 15.2 % (11.5-14.5); WHITE BLOOD COUNT 14.8 X10'3 (4.5-11.0)
[2024-11-22 01:54] LABS: ALANINE AMINOTRANSFERASE 98 U/L (12-78); ALBUMIN 2.6 G/DL (3.4-5.0); ALBUMIN/GLOBULIN RATIO 0.8 (1.1-1.5); ALKALINE PHOSPHATASE 67 IU/L (46-116); ANION GAP 10 (8-16); ASPARTATE AMINO TRANSFERASE 108 U/L (10-37); BILIRUBIN,TOTAL 0.6 MG/DL (0.1-1.0); BLOOD UREA NITROGEN 70 MG/DL (7-18); BUN/CREATININE RATIO 13.8 (10.0-20.0); CALCIUM 8.5 MG/DL (8.5-10.1); CHLORIDE 99 MMOL/L (99-107); CREATININE 5.09 MG/DL (0.60-1.10); GLUCOSE 225 MG/DL (70-104); MAGNESIUM 2.1 MG/DL (1.5-2.4); SODIUM 136 MMOL/L (135-145); TOTAL CARBON DIOXIDE 27.5 MMOL/L (24-32); TOTAL PROTEIN 5.8 G/DL (6.4-8.2); eCRCL 13 ML/MIN; eGFR 11 ML/MIN
--- NOTE | 2024-11-22 05:36 | RADIOLOGY REPORT ---
EXAM: XR Chest, 1 View CLINICAL INDICATION: Pain TECHNIQUE: Frontal view of the chest. COMPARISON: ., XR Chest dated 11/21/2024 FINDINGS: LUNGS AND PLEURAL SPACES: See below. HEART: Cardiomegaly with mild congestion. MEDIASTINUM: Unremarkable. Normal mediastinal contour. BONES/JOINTS: Unremarkable. No acute fracture. SOFT TISSUES: Persistent extensive soft tissue emphysema. TUBES, LINES AND DEVICES: Right-sided chest tube. Decreasing right pneumothorax. Left-sided cardia c pacemaker. IMPRESSION: 1. Persistent extensive soft tissue emphysema. 2. Right-sided chest tube. Decreasing right pneumothorax. 3. Cardiomegaly with mild congestion.
[2024-11-22 07:22] LABS: PHOSPHORUS 4.8 MG/DL (2.3-4.5)
[2024-11-22] MEDS ORDERED: albumin (human) 25% 100ml IV 100 ML IV PRN (08:00)
[2024-11-22] MEDS: LIDOcaine 1% (10mg/ml) 2ml vial SQ ONE (09:30)
[2024-11-22] MEDS: EPOETIN ALFA-EPBX 20,000 UNIT/ML 1 ML MDV IV ONE (09:31)
--- NOTE | 2024-11-22 12:08 | PROGRESS NOTE- Residence ---
Progress Note - Resident Providers to CC Resident Creating Document: CONNIE BEYER, RES ~ Central Line/PICC still needed: No Gold-Non Protocol Gold Indications Met/Not Met: F/C Indications Not Met Antibiotic Timeout Antibiotic Ordered?: No Subjective Patient was seen and examined in the ICU. Subcutaneous emphysema seems to improved compared to yesterday. Patient received dialysis this morning. Objective Vital Signs Date Time Temp Pulse Resp B/P (MAP) Pulse Ox O2 Delivery O2 Flow Rate FiO2 11/22/24 11:50 61 19 132/51 (78) 98 Room Air 11/22/24 10:00 97.9 11/22/24 07:43 0 21 Result Diagram: 11/22/2413211/22/24132 General Appearance: Awake, alert, oriented HEENT: Atraumatic, normocephalic, GIBSON, EOMI. Normal oropharynx, moist oral mucosa. Neck: Trachea midline. Supple, normal ROM. No JVD, bruit, lymphadenopathy or masses, or other lesions. Respiratory: Breathing sounds clear to; no crackles or wheezes Cardiac: RRR,. No murmur, normal S1-S2 GI: No tenderness. abdomen symmetric, nondistended, soft, No guarding, no rebound or rigidity. Extremities: Normal ROM, no swelling, non-tender. Distal pulses full symmetrical, no clubbing, cyanosis, edema, capillary refill less than 2 seconds. Skin: Intact, dry, warm, bruising is present in bilateral upper extremities and lower extremities. Diffuse subcutaneous emphysema. Neuro: Speech is clear, alert and oriented x4. No sensory or motor deficit, DTRs normal. Cranial nerves II to XII intact. Right-sided chest tube, Coagulation Studies Laboratory Tests Test 11/02/24 16:02 Prothrombin Time 10.7 SECONDS (9.0-12.0) INR International Normalized Ratio 1.0 INR Activated Partial Thromboplast Time 28 SECONDS (22-32) Advance Care Planning Advanced Care plannin - 30 Minutes Plan Plan Assessment This is a 73-year-old male with history of end-stage renal disease, squamous cell carcinoma of lung was admitted in the hospital for a right upper lung lobectomy. Robotic thoracoscopic assisted right upper lobectomy and node dissection and chest tube placement was done by Dr. Cruz on 11/16/2024. 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 Currently he is on hemodialysis, scheduled Wednesday, Wednesday, Wednesday. Av fistula is present on the right arm. Plan End-stage renal disease-on hemodialysis Dialysis schedule-Wednesday, Wednesday, Wednesday Got dialyzed today morning. Access AV fistula on right arm Also has anemia secondary to CKD, goal hemoglobin between 10 and 11.5. ESR 44766 units given with dialysis. Received 1 unit of blood transfusion on 11/18 and 11/20 Potassium levels in the normal range Hyperphosphatemia with a phosphorus 5.1, goal phosphorus less than 5.5, continue calcium polycarbophil 625 mg t.i.d. 11/21/2024-scheduled for dialysis tomorrow. 11/22/2024-got dialysis today. Anemia Also has anemia secondary to CKD, goal hemoglobin between 10 and 11.5. ESR 96220 units given with dialysis. Received 1 unit of blood transfusion on 11/18 and 11/1911/21/2024-iron profile showed high ferritin 3264, iron 25, TIBC 192 Elevated transaminases AST , ALT-232, 131 For the transaminases improved to AST 108, ALT 98 s/p right upper lung lobectomy Right-sided chest tube in place. Chest tube will be removed today. -managed by 11/21/2024 -chest tube has been removed and post that patient developed subcutaneous emphysema. To CT was done which showed large volume subcutaneous emphysema and pneumomediastinum. Small bilateral basilar pneumothorax with small right pleural effusion. 11/22/2024 -patient's subcutaneous emphysema seems to be better than yesterday. He is able to open eyes. -has a THORA-VENT in place Connie beyer M.D Nephrology resident PGY1 Attending Note: The patient seen in icu undergoing dialysis. His facial puffiness is better and he is able to open his eyes. thoravent in place. Care plan reviewed with resident. slowly recuperating. Artem Connor MD Nephrology/[facility] Date of Service: Nov 22, 2024 Billing Provider: ARTEM CONNOR MD, PRAVAHIKA, RES Nov 22, 2024 12:08 ARTEM CONNOR MD Nov 22, 2024 17:48
[2024-11-22] MEDS: NUT.TX.IMP.RENAL FXN,LAC-REDUC (Nepro) 237 ML VANILLA PO SCH (13:00)
--- NOTE | 2024-11-22 16:56 | PROGRESS NOTE ---
Progress Note ID Providers to CC ~ Progress Note Progress Note: doing well/cont suction MERLIN WEAVER MD Nov 22, 2024 16:56
[2024-11-23] VITALS (9 sets, daily range): BP systolic 100–156; BP diastolic 42–59; PULSE 57–65; RESP 11–20; TEMP 97.1–98.9; O2SAT 65–100
--- NOTE | 2024-11-23 11:40 | RADIOLOGY REPORT ---
CHEST XRAY: 1 view(s) was obtained HISTORY: ptx @ 1000 COMPARISON: DI CHEST,SINGLE VIEW on DOS: 11/22/24, DI CHEST,SINGLE VIEW on DOS: 11/21/24, DI CHEST,SING LE VIEW on DOS: 11/21/24, DI CHEST,SINGLE VIEW on DOS: 11/21/24, DI CHEST,SINGLE VIEW on DOS: 11/20/24 FINDINGS: This is unchanged position of the right chest tube. No pneumothorax. There is a small right pleural e ffusion with right basilar atelectasis. There is extensive subcutaneous emphysema. Cardiomediastinal sihloutte is normal in size. Left chest pacer. IMPRESSION: 1. No residual right pneumothorax 2. Slightly decreased extensive subcutaneous emphysema 3. Slightly increasing right basilar atelectasis and small effusion
--- NOTE | 2024-11-23 17:30 | PROGRESS NOTE ---
Progress Note Dictate Providers to CC ~ Central Line/PICC still needed: No Gold Indications Met/Not Met: F/C Indications Not Met Antibiotic Ordered?: N/A Subjective Subjective sQ emphesema regressing slowly. nasal tone of the voice is persistent. Objective Vitals Vital Signs Date Time Temp Pulse Resp B/P (MAP) Pulse Ox O2 Delivery O2 Flow Rate FiO2 11/23/24 14:18 98.4 57 16 140/52 (81) 98 Room Air 11/23/24 08:55 2.0 28 Lab Results: 11/22/24 0133 11/22/24 0133 Objective obese built Facial puffiness due to SQ emphysema is better. able to open eyes CVS: RRR RS;CTA crackles from the SQ air persistent Ext: No edema Abd: Bs+ Coagulation Studies Laboratory Tests Test 11/02/24 16:02 Prothrombin Time 10.7 SECONDS (9.0-12.0) INR International Normalized Ratio 1.0 INR Activated Partial Thromboplast Time 28 SECONDS (22-32) Advance Care Planning Advanced Care plannin - 30 Minutes Problem\Assessment\Plan Problems/Diagnosis: (1) S/P lobectomy of lung Assessment & Plan: Improved, some pain with inspiration otherwise doing well, not tachypneic, breathing not labored, managed by surgeon. (2) ESRD (end stage renal disease) on dialysis Assessment & Plan: ESRD-HD, Wednesday schedule we will continue that while in the hospital, last dialysis was yesterday, we will plan on dialysis for Wednesday. All relevant labs and reports were reviewed to develop this dialysis prescription today iHD 3 Hours Access TDC Dialyzer Elisio 15H BFR 350 DFR 2 X BFR Na 140 K 3 HCO3 34 Ca 2.5 SUNITHA 10K Units Albumion N 1. Anemia-CKD, hemoglobin goal between 10 and 11.5, SUNITHA 10,000 units with dialysis 2. 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
--- NOTE | 2024-11-23 17:31 | PROGRESS NOTE ---
Progress Note ID Providers to CC ~ Progress Note Progress Note: doing well/small leak/trial of waterseal MERLIN WEAVER MD Nov 23, 2024 17:31
--- NOTE | 2024-11-23 18:53 | RADIOLOGY REPORT ---
CHEST RADIOGRAPH REASON FOR EXAM: ptx COMPARISON: DI CHEST,SINGLE VIEW on DOS: 11/23/24, DI CHEST,SINGLE VIEW on DOS: 11/22/24, DI CHEST,SING LE VIEW on DOS: 11/21/24, DI CHEST,SINGLE VIEW on DOS: 11/21/24, DI CHEST,SINGLE VIEW on DOS: 11/21/24 TECHNIQUE: One view of the chest is provided FINDINGS: The cardiomediastinal silhouette is stable. There is a 2 lead cardiac pacer. There is a all right chest pigtail drain. No definite pneumothorax is identified. Extensive subcutaneous emphyse ma degrades evaluation of the right hemithorax. There is no significant pleural effusion. IMPRESSION: No definite pneumothorax identified. Extensive subcutaneous emphysema.
[2024-11-23] MEDS: Melatonin 3mg tablet PO ONE (23:35)
[2024-11-24] VITALS (16 sets, daily range): BP systolic 101–158; BP diastolic 36–61; PULSE 60–68; RESP 15–20; TEMP 97.4–99; O2SAT 93–99
[2024-11-24] MEDS: LIDOcaine 1% (10mg/ml) 2ml vial SQ ONE (09:11)
[2024-11-24 13:02] LABS: BASOPHILS % (AUTO) 0.2 % (0-1); EOSINOPHILS # (AUTO) 0.2 X10'3 (0-0.9); HEMATOCRIT 26.3 % (42.0-52.0); HEMOGLOBIN 9.1 g/dl (14.0-17.9); LYMPHOCYTES # (AUTO) 1.3 X10'3 (1.1-4.8); LYMPHOCYTES % (AUTO) 8.2 % (21-51); MEAN CORPUSCULAR HEMOGLOBIN 30.2 PG (27.0-31.0); MEAN CORPUSCULAR HGB CONC 34.5 g/dL (33.0-36.5); MEAN CORPUSCULAR VOLUME 87.7 FL (78-98); MEAN PLATELET VOLUME 8.9 FL (7.4-10.4); MONOCYTES # (AUTO) 1.2 X10'3 (0-0.9); MONOCYTES % (AUTO) 7.9 % (2-12); NEUTROPHILS % (AUTO) 82.7 % (42-75); PLATELET COUNT 338 X10'3 (140-440); RED CELL DISTRIBUTION WIDTH 15.6 % (11.5-14.5); WHITE BLOOD COUNT 15.7 X10'3 (4.5-11.0)
[2024-11-24] MEDS: EPOETIN ALFA-EPBX 20,000 UNIT/ML 1 ML MDV IV ONE (14:03)
--- NOTE | 2024-11-24 16:42 | PROGRESS NOTE- Residence ---
Progress Note - Resident Providers to CC Resident Creating Document: CONNIE BEYER RES ~ Antibiotic Timeout Antibiotic Ordered?: Yes Subjective Patient is seen and examined at bedside today. Subcutaneous emphysema improved. Got dialyzed today. Objective Vital Signs Date Time Temp Pulse Resp B/P (MAP) Pulse Ox O2 Delivery O2 Flow Rate FiO2 11/24/24 12:20 98.2 65 17 101/57 (72) 98 Room Air 11/24/24 08:26 0.0 21 Result Diagram: 11/24/24 1234 11/22/24 0133 General Appearance: Awake, alert, oriented HEENT: Atraumatic, normocephalic, GIBSON, EOMI. Normal oropharynx, moist oral mucosa. Neck: Trachea midline. Supple, normal ROM. No JVD, bruit, lymphadenopathy or masses, or other lesions. Respiratory: Breathing sounds clear to; no crackles or wheezes Cardiac: RRR,. No murmur, normal S1-S2 GI: No tenderness. abdomen symmetric, nondistended, soft, No guarding, no rebound or rigidity. Extremities: Normal ROM, no swelling, non-tender. Distal pulses full symmetrical, no clubbing, cyanosis, edema, capillary refill less than 2 seconds. Skin: Intact, dry, warm, bruising is present in bilateral upper extremities and lower extremities. Diffuse subcutaneous emphysema. Neuro: Speech is clear, alert and oriented x4. No sensory or motor deficit, DTRs normal. Cranial nerves II to XII intact. Right-sided chest tube, Coagulation Studies Laboratory Tests Test 11/02/24 16:02 Prothrombin Time 10.7 SECONDS (9.0-12.0) INR International Normalized Ratio 1.0 INR Activated Partial Thromboplast Time 28 SECONDS (22-32) Advance Care Planning Advanced Care plannin - 30 Minutes Plan Plan Assessment This is a 73-year-old male with history of end-stage renal disease, squamous cell carcinoma of lung was admitted in the hospital for a right upper lung lobectomy. Robotic thoracoscopic assisted right upper lobectomy and node dissection and chest tube placement was done by Dr. Cruz on 11/16/2024. 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 Currently he is on hemodialysis, scheduled Wednesday, Wednesday, Wednesday. Av fistula is present on the right arm. Plan End-stage renal disease-on hemodialysis Dialysis schedule-Wednesday, Wednesday, Wednesday Got dialyzed today morning. Access AV fistula on right arm Also has anemia secondary to CKD, goal hemoglobin between 10 and 11.5. [place] 59336 units given with dialysis. Received 1 unit of blood transfusion on 11/18 and 11/20 Potassium levels in the normal range Hyperphosphatemia with a phosphorus 5.1, goal phosphorus less than 5.5, continue calcium polycarbophil 625 mg t.i.d. 11/21/2024-scheduled for dialysis tomorrow. 11/22/2024-got dialysis today. 11/24/24-caught dialysis today Anemia Also has anemia secondary to CKD, goal hemoglobin between 10 and 11.5. ESR 99603 units given with dialysis. Received 1 unit of blood transfusion on 11/18 and 11/1911/21/2024-iron profile showed high ferritin 3264, iron 25, TIBC 192 -11/24/24 hemoglobin improved to 9.1 Elevated transaminases AST , ALT-232, 131 For the transaminases improved to AST 108, ALT 98 s/p right upper lung lobectomy Right-sided chest tube in place. Chest tube will be removed today. -managed by 11/21/2024 -chest tube has been removed and post that patient developed subcutaneous emphysema. To CT was done which showed large volume subcutaneous emphysema and pneumomediastinum. Small bilateral basilar pneumothorax with small right pleural effusion. 11/22/2024 -patient's subcutaneous emphysema seems to be better than yesterday. He is able to open eyes. -has a THORA-VENT in place 11/24/24-subcutaneous I see my improved significantly, continues to have THORA- VENT in place Connie beyer M.D Nephrology resident PGY1 Attending NOte: The patient seen and examined. was dialyzed today. SQ air regressing well. agree with above. Artem Connor MD Nephrology Date of Service: Nov 24, 2024 Billing Provider: ARTEM CONNOR MD, PRAVAHIKA, RES Nov 24, 2024 16:42 ARTEM CONNOR MD Nov 24, 2024 17:18
--- NOTE | 2024-11-24 17:45 | PROGRESS NOTE ---
Progress Note ID Providers to CC ~ Progress Note Progress Note: no complaints/vss/swelling improving/cxr noted a/p 1. s/p itzel rul-doing well/ok for rehab-cont MERLIN Church MD Nov 24, 2024 17:45
[2024-11-25] VITALS (10 sets, daily range): BP systolic 119–150; BP diastolic 30–57; PULSE 59–62; RESP 14–20; TEMP 97.2–97.7; O2SAT 95–99
--- NOTE | 2024-11-25 10:24 | RADIOLOGY REPORT ---
EXAM: XR Chest, 1 View CLINICAL INDICATION: THROAVENT EVAL TECHNIQUE: Frontal view of the chest. COMPARISON: DI CHEST,SINGLE VIEW on DOS: 11/23/24, DI CHEST,SINGLE VIEW on DOS: 11/23/24, DI CHEST,SI NGLE VIEW on DOS: 11/22/24, DI CHEST,SINGLE VIEW on DOS: 11/21/24, DI CHEST,SINGLE VIEW on DOS: 11/21/24 FINDINGS: LUNGS AND PLEURAL SPACES: Extensive soft tissue emphysema. Subtle pneumothorax can not be entirely excluded. Mild CHF. HEART: Unremarkable. No cardiomegaly. MEDIASTINUM: Unremarkable. Normal mediastinal contour. BONES/JOINTS: Unremarkable. No acute fracture. TUBES, LINES AND DEVICES: Stable tubes and lines. OTHER FINDINGS: . . . IMPRESSION: No significant change from the prior exam.
--- NOTE | 2024-11-25 13:16 | PROGRESS NOTE ---
Progress Note Dictate Providers to CC CC: GABRIELA PARKER MD ~ Progress Note: Subsequent surgical care on a 73-year-old gentleman who is postoperative day 9, status post robotic right upper lobectomy Ready for transfer to rehab from a surgical standpoint All documents for transfer signed He can follow up with Dr. Justin Cruz in one week Antibiotic Ordered?: No Objective Vitals Vital Signs Date Time Temp Pulse Resp B/P (MAP) Pulse Ox O2 Delivery O2 Flow Rate FiO2 11/25/24 11:00 97.4 60 16 119/30 (59) 98 Room Air 11/25/24 08:45 0.0 21 Lab Results: 11/24/24 1234 11/22/24 0133 Coagulation Studies Laboratory Tests Test 11/02/24 16:02 Prothrombin Time 10.7 SECONDS (9.0-12.0) INR International Normalized Ratio 1.0 INR Activated Partial Thromboplast Time 28 SECONDS (22-32) Sepsis Screening Skin Color: Normal GABRIELA PARKER MD Nov 25, 2024 13:16
--- NOTE | 2024-11-25 15:38 | PROGRESS NOTE ---
Progress Note Dictate Providers to CC ~ Central Line/PICC still needed: No Gold Indications Met/Not Met: F/C Indications Not Met Antibiotic Ordered?: N/A Subjective Subjective sleeping during rounds. SQ emphysema regressed a lot. awaiting rehab xfer. he probably will go with louann smith and . Objective Vitals Vital Signs Date Time Temp Pulse Resp B/P (MAP) Pulse Ox O2 Delivery O2 Flow Rate FiO2 11/25/24 11:00 97.4 60 16 119/30 (59) 98 Room Air 11/25/24 08:45 0.0 21 Lab Results: 11/24/24 1234 11/22/24 0133 Objective obese built Facial puffiness due to SQ emphysema is better. able to open eyes CVS: RRR RS;CTA crackles from the SQ air persistent Ext: No edema Abd: Bs+ Coagulation Studies Laboratory Tests Test 11/02/24 16:02 Prothrombin Time 10.7 SECONDS (9.0-12.0) INR International Normalized Ratio 1.0 INR Activated Partial Thromboplast Time 28 SECONDS (22-32) Advance Care Planning Advanced Care plannin - 30 Minutes Problem\Assessment\Plan Problems/Diagnosis: (1) S/P lobectomy of lung Assessment & Plan: Improved, some pain with inspiration otherwise doing well, not tachypneic, breathing not labored, managed by surgeon. (2) ESRD (end stage renal disease) on dialysis Assessment & Plan: ESRD-HD, Wednesday schedule we will continue that while in the hospital, last dialysis was yesterday, we will plan on dialysis for Wednesday. 1. Anemia-CKD, hemoglobin goal between 10 and 11.5, SUNITHA 10,000 units with dialysis 2. 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
[2024-11-26] MEDS: temazepam 15mg capsule PO ONE (00:29)
[2024-11-26 02:00] VITALS: BP 139/55; PULSE 60; RESP 16; TEMP 97.5; O2SAT 96
[2024-11-26 07:22] VITALS: BP 137/94; PULSE 60; RESP 16; TEMP 97.3; O2SAT 96
[2024-11-26 08:00] VITALS: BP_SYST 137; PULSE 60; RESP 16; O2SAT 96
--- NOTE | 2024-11-26 09:41 | PROGRESS NOTE ---
Progress Note Dictate Providers to CC ~ Central Line/PICC still needed: No Gold Indications Met/Not Met: F/C Indications Not Met Antibiotic Ordered?: N/A Subjective Subjective The patient has thoravent in place. awaiting rehab placement. recuperating slowly. due for HD tomorrow. continue to hold any NSAIDS or Magnesium or aluminum based antacids or laxatives. Objective Vitals Vital Signs Date Time Temp Pulse Resp B/P (MAP) Pulse Ox O2 Delivery O2 Flow Rate FiO2 11/26/24 02:00 97.5 60 16 139/55 (83) 96 Room Air 11/25/24 23:32 0 21 Lab Results: 11/24/24 1234 11/22/24 0133 Objective obese built Facial puffiness due to SQ emphysema is better. able to open eyes CVS: RRR RS;CTA crackles from the SQ air persistent Ext: No edema Abd: Bs+ Coagulation Studies Laboratory Tests Test 11/02/24 16:02 Prothrombin Time 10.7 SECONDS (9.0-12.0) INR International Normalized Ratio 1.0 INR Activated Partial Thromboplast Time 28 SECONDS (22-32) Advance Care Planning Advanced Care plannin - 30 Minutes Problem\Assessment\Plan Problems/Diagnosis: (1) S/P lobectomy of lung Assessment & Plan: Improved, some pain with inspiration otherwise doing well, not tachypneic, breathing not labored, managed by surgeon. (2) ESRD (end stage renal disease) on dialysis Assessment & Plan: ESRD-HD, Wednesday schedule we will continue that while in the hospital, last dialysis was yesterday, we will plan on dialysis for Wednesday. 1. Anemia-CKD, hemoglobin goal between 10 and 11.5, SUNITHA 10,000 units with dialysis 2. 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 no new labs. Ordered to be done today. Sepsis Screening Skin Color: Normal ELVER CONNOR MD Nov 26, 2024 09:41
[2024-11-26 10:10] LABS: BASOPHILS % (AUTO) 0.3 % (0-1); EOSINOPHILS # (AUTO) 0.2 X10'3 (0-0.9); EOSINOPHILS % (AUTO) 1.5 % (0-6); HEMATOCRIT 27.8 % (42.0-52.0); HEMOGLOBIN 9.4 g/dl (14.0-17.9); LYMPHOCYTES # (AUTO) 1.5 X10'3 (1.1-4.8); LYMPHOCYTES % (AUTO) 11.2 % (21-51); MEAN CORPUSCULAR HGB CONC 33.8 g/dL (33.0-36.5); MEAN CORPUSCULAR VOLUME 88.6 FL (78-98); MEAN PLATELET VOLUME 8.6 FL (7.4-10.4); MONOCYTES # (AUTO) 0.8 X10'3 (0-0.9); MONOCYTES % (AUTO) 6.3 % (2-12); NEUTROPHILS # (AUTO) 10.7 X10'3 (1.8-7.7); NEUTROPHILS % (AUTO) 80.7 % (42-75); PLATELET COUNT 412 X10'3 (140-440); RED BLOOD COUNT 3.14 X10'6 (4.70-6.10); WHITE BLOOD COUNT 13.3 X10'3 (4.5-11.0)
[2024-11-26 10:30] LABS: ALANINE AMINOTRANSFERASE 226 U/L (12-78); ALBUMIN 2.9 G/DL (3.4-5.0); ALBUMIN/GLOBULIN RATIO 0.8 (1.1-1.5); ALKALINE PHOSPHATASE 94 IU/L (46-116); ANION GAP 10 (8-16); ASPARTATE AMINO TRANSFERASE 131 U/L (10-37); BILIRUBIN,TOTAL 1.1 MG/DL (0.1-1.0); BLOOD UREA NITROGEN 65 MG/DL (7-18); BUN/CREATININE RATIO 13.6 (10.0-20.0); CALCIUM 8.8 MG/DL (8.5-10.1); CHLORIDE 96 MMOL/L (99-107); CREATININE 4.78 MG/DL (0.60-1.10); GLUCOSE 317 MG/DL (70-104); MAGNESIUM 2.2 MG/DL (1.5-2.4); SODIUM 133 MMOL/L (135-145); TOTAL PROTEIN 6.5 G/DL (6.4-8.2); eCRCL 14 ML/MIN; eGFR 12 ML/MIN
== END 2024-11-26 10:30 | DRG 163 ==
LOC: PAS IN 11-16 05:52 → CICU 2S 11-16 18:45 → PCU 3S 11-17 20:02 → CICU 2S 11-21 02:30 → PCU 3S 11-22 15:59
PROVIDERS: ADMIT Surgery; ATTEND Surgery
PROC: 07B74ZZ Excision of Thorax Lymphatic, Percutaneous Endoscopic Approach (ICD-10-PCS; 2024-11-16)
PROC: 0BB44ZZ Excision of Right Upper Lobe Bronchus, Percutaneous Endoscopic Approach (ICD-10-PCS; 2024-11-16)
PROC: 8E0W4CZ Robotic Assisted Procedure of Trunk Region, Percutaneous Endoscopic Approach (ICD-10-PCS; 2024-11-16)
PROC: 30233R1 Transfusion of Nonautologous Platelets into Peripheral Vein, Percutaneous Approach (ICD-10-PCS; 2024-11-16)
PROC: 0BTC4ZZ Resection of Right Upper Lung Lobe, Percutaneous Endoscopic Approach (ICD-10-PCS; principal; 2024-11-16 09:32)
PROC: 5A1D70Z Performance of Urinary Filtration, Intermittent, Less than 6 Hours Per Day (ICD-10-PCS; 2024-11-17)
PROC: 30233N1 Transfusion of Nonautologous Red Blood Cells into Peripheral Vein, Percutaneous Approach (ICD-10-PCS; 2024-11-18)
PROC: 5A1D70Z Performance of Urinary Filtration, Intermittent, Less than 6 Hours Per Day (ICD-10-PCS; 2024-11-20)
PROC: 5A09357 Assistance with Respiratory Ventilation, Less than 24 Consecutive Hours, Continuous Positive Airway Pressure (ICD-10-PCS; 2024-11-20)
PROC: 5A1D70Z Performance of Urinary Filtration, Intermittent, Less than 6 Hours Per Day (ICD-10-PCS; 2024-11-22)
PROC: 5A1D70Z Performance of Urinary Filtration, Intermittent, Less than 6 Hours Per Day (ICD-10-PCS; 2024-11-24)
DX: C34.11 Malignant neoplasm of upper lobe, right bronchus or lung (principal); N18.6 End stage renal disease; J90 Pleural effusion, not elsewhere classified; Z88.5 Allergy status to narcotic agent; N40.0 Benign prostatic hyperplasia without lower urinary tract symptoms; F32.A Depression, unspecified; M10.9 Gout, unspecified; E87.5 Hyperkalemia; D63.1 Anemia in chronic kidney disease; E83.39 Other disorders of phosphorus metabolism; R74.01 Elevation of levels of liver transaminase levels; Y93.89 Activity, other specified; Y92.89 Other specified places as the place of occurrence of the external cause; Y99.8 Other external cause status
CPT/HCPCS: 36415; 36430; 36600; 70450; 71045; 71046; 71250; 80053; 81001; 82728; 82803; 82948; 83036; 83540; 83550; 83735; 84100; 85018; 85025; 85027; 85610; 85730; 86078; 86885; 86900; 86901; 86920; 87081; 87340; 94760; 97110; 97116; 97162; 97530; A4615; A4618; A6212; A6222; A6223; A6253; A6258; A6402; A6449; A6590; A7000; A7048; C1758; C9250; E1594; G0257; G0378; J0131; J0360; J0666; J0690; J1171; J1815; J2003; J2250; J2270; J2597; J2704; J3010; J3490; J7030; J7040; J7120; P9016; P9035; Q4081